=== PATIENT | female | born 1950 ===

== ENCOUNTER 2016-11-30 16:33 | Inpatient (IN) | payer MEDICARE, MEDICAID ==
[2016-11-30] MEDS ORDERED: Albuterol-Ipratrop 3 mg / 0.5 (3 ml) UD IH STA (17:25)
[2016-11-30] MEDS ORDERED: Sodium Chloride 0.9% 1,000 ML IV SCH (17:30)
[2016-11-30 18:01] LABS: ADD MANUAL DIFF? NO
[2016-11-30 18:09] LABS: VENOUS BLOOD GAS BASE EXCESS -0.7 mmol/L (0.0-2.0); VENOUS BLOOD PH 7.39 (7.32-7.43)
[2016-11-30 18:13] LABS: BASO # 0.01 K/mm3 (0.0-2.0); GRAN # 19.06 (1.4-6.5); GRAN % 87.2 % (50.0-68.0); HEMATOCRIT 38.6 % (36.0-48.0); LYMPH # 1.3 (1.2-3.4); LYMPH % 5.9 % (22.0-35.0); MEAN CELL VOLUME 92.1 fL (80.0-105.0); MEAN CORPUSCULAR HGB CONC 34.7 g/dl (31.0-37.0); MEAN PLATELET VOLUME 10.7 fl (7.0-11.0); MONO # 1.5 (0.1-0.6); MONO % 6.9 % (1.0-6.0); PLATELET COUNT 270 10^3/uL (120.0-450.0); RED CELL DISTRIBUTION WIDTH 14.4 % (11.5-14.5); WHITE BLOOD COUNT 21.9 10^3/ul (4.5-11.0)
--- NOTE | 2016-11-30 18:23 | ED PDOC ---
Arrival/HPI - General Chief Complaint: GI Problem Time Seen by Provider: 11/30/16 16:41 Historian: Patient - History of Present Illness Narrative History of Present Illness (Text): 11/30/16 18:25 A 66 year old female, whose past medical history includes COPD and hypothyroidism, presents to the emergency department complaining of a productive cough for the past 2 weeks. Patient notes nasal congestion and chills the past couple of days. Patient reports went to [facility] for pneumonia, given no antibiotics. Patient is tolerating fluids. Denies any fevers, neck pain , neck stiffness or any other complaints at this time. Time/Duration: Other (2 weeks) Symptom Onset: Sudden Symptom Course: Unchanged Activities at Onset: Rest Context: Home Associated Symptoms (Text): nasal congestion, chills, runny nose Past Medical History - Provider Review Nursing Documentation Reviewed: Yes - Infectious Disease Hx of Infectious Diseases: None - Tetanus Immunization Tetanus Immunization: Unknown - Reproductive Menopause: No - Cardiac Hx Cardiac Disorders: Yes - Pulmonary Hx Respiratory Disorders: Yes Hx Chronic Obstructive Pulmonary Disease (COPD): Yes - Neurological Hx Neurological Disorder: No - HEENT Hx HEENT Disorder: No - Renal Hx Renal Disorder: No - Endocrine/Metabolic Hx Endocrine Disorders: Yes Hx Hypothyroidism: Yes - Hematological/Oncological Hx Blood Disorders: No - Integumentary Hx Dermatological Disorder: No Hx Basal Cell Carcinoma: No - Musculoskeletal/Rheumatological Hx Musculoskeletal Disorders: No - Gastrointestinal Hx Gastrointestinal Disorders: No - Genitourinary/Gynecological Hx Genitourinary Disorders: No - Psychiatric Hx Psychophysiologic Disorder: Yes Hx Anxiety: Yes Hx Substance Use: No - Anesthesia Hx Anesthesia: No Family/Social History - Physician Review Nursing Documentation Reviewed: Yes Family/Social History: No Known Family HX Smoking Status: Light Smoker < 10 Cigarettes Daily Hx Alcohol Use: No Hx Substance Use: No Substance used: jaymeajuana Allergies/Home Meds Allergies/Adverse Reactions: Allergies aloe Allergy (Verified 06/27/16 11:25) ANGIOEDEMA Penicillins Allergy (Verified 09/29/15 10:02) Home Medications: Home Meds Medication Instructions Recorded Confirmed Levothyroxine Sodium [Synthroid] 50 mcg PO DAILY 09/01/15 09/01/15 Atorvastatin [Lipitor] 10 mg PO DIN 09/29/15 09/29/15 Venetie-3 Acid Ethyl Esters [Lovaza] 2 gm PO BID 09/29/15 09/29/15 QUEtiapine [SEROquel] 25 mg PO HS 09/29/15 09/29/15 Levothyroxine [Synthroid] 50 mcg PO DAILY 06/27/16 06/27/16 Review of Systems - Physician Review All systems were reviewed & negative as marked: Yes - Review of Systems Constitutional: Other (chills). absent: Fevers ENT: Rhinorrhea, Other (nasal congestion) Respiratory: Cough (productive) Musculoskeletal: absent: Neck Pain (stiffness) Physical Exam Vital Signs Reviewed: Yes Vital Signs Temp Pulse Resp BP Pulse Ox 11/30/16 21:13 6 L 11/30/16 21:12 99.9 F H 11/30/16 20:39 90 17 107/63 11/30/16 18:35 78 17 109/64 97 11/30/16 16:57 99.0 F 101 H 18 113/75 100 Temperature: Afebrile Blood Pressure: Normal Pulse: Tachycardic Respiratory Rate: Normal Appearance: Positive for: Well-Appearing, Non-Toxic, Comfortable Pain Distress: None Mental Status: Positive for: Alert and Oriented X 3 - Systems Exam Head: Present: Atraumatic, Normocephalic Pupils: Present: PERRL Extroacular Muscles: Present: EOMI Conjunctiva: Present: Normal Mouth: Present: Moist Mucous Membranes Neck: Present: Normal Range of Motion Respiratory/Chest: Present: Clear to Auscultation, Good Air Exchange. No: Respiratory Distress, Accessory Muscle Use Cardiovascular: Present: Tachycardic Abdomen: Present: Normal Bowel Sounds. No: Tenderness, Distention, Peritoneal Signs Back: Present: Normal Inspection Upper Extremity: Present: Normal Inspection. No: Cyanosis, Edema Lower Extremity: Present: Normal Inspection. No: Edema Neurological: Present: GCS=15, CN II-XII Intact, Speech Normal Skin: Present: Warm, Dry, Normal Color. No: Rashes Psychiatric: Present: Alert, Oriented x 3, Normal Insight, Normal Concentration Medical Decision Making ED Course and Treatment: 11/30/16 18:20 Impression: A 66 year old female with productive cough. Differential Diagnosis included but are not limited to: chronic obstructive pulmonary disease r/o pneumonia Plan: -- chest xray -- labs -- Duoneb, Solumedrol, IV fluids, Tylenol -- Reassess and disposition Prior Visits: Notes and results from previous visits were reviewed. Patient last reported to the emergency department on 06/27/16 after a fall for evaluation of left anterior knee cap pain. [place] bandage applied by cardiovascular tech. Patient was discharged. Progress Notes: WBC 21. 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 He has liver disease. CXR negative. Will cover with empiric antibiotics at this time. She will be admitted for COPD and Sepsis. Treated with Levaquin. 11/30/16 19:[address] Gera Rea, resident and Dr. Landrum. - Lab Interpretations Lab Results: 11/30/16 17:30 11/30/16 17:30 Lab Results 11/30/16 18:21: Influenza Typ A,B (EIA) Negative for flu a/b 11/30/16 17:30: Sodium 137, Chloride 104, Potassium 4.0, Carbon Dioxide 24, Anion Gap 13, BUN 21, Creatinine 0.8, Est GFR ( Amer) > 60, Est GFR (Non- Af Amer) > 60, Random Glucose 109, Calcium 9.8, Phosphorus 1.8 L, Magnesium 2.1 , Total Bilirubin 0.5, AST 30, ALT 31, Alkaline Phosphatase 85, Total Protein 8.0, Albumin 4.5, Globulin 3.5, Albumin/Globulin Ratio 1.3 11/30/16 17:30: pO2 56 H, VBG pH 7.39, VBG pCO2 40.0, VBG HCO3 24.2, VBG Total CO2 25.4, VBG O2 Sat (Calc) 93.1 H, VBG Base Excess -0.7 L, VBG Potassium 4.2, Sodium 136.0, Chloride 106.0, Glucose 111 H, Lactate 1.2, FiO2 21.0, Venous Blood Potassium 4.2 11/30/16 17:30: WBC 21.9 H, RBC 4.19, Hgb 13.4, Hct 38.6, MCV 92.1, MCH 32.0, MCHC 34.7, RDW 14.4, Plt Count 270, MPV 10.7, Gran % 87.2 H, Lymph % (Auto) 5.9 L, Ritchie % (Auto) 6.9 H, Eos % (Auto) 0.0 L, Baso % (Auto) 0.0, Gran # 19.06 H, Lymph # 1.3, [place] # 1.5 H, Eos # 0.0, Baso # 0.01 I have reviewed the lab results: Yes Interpretation: Abnormal lab values (WBC elevated) - RAD Interpretation Radiology Orders: 11/30/16 17:25 CHEST PORTABLE [RAD] Stat Senior Compliance Officer: ED Physician - Medication Orders Current Medication Orders: Acetaminophen (Tylenol 325mg Tab) 650 mg PO Q6H PRN PRN Reason: Fever >100.4 F Atorvastatin Calcium (Lipitor) 10 mg PO DAILY RADHA Famotidine (Pepcid) 20 mg PO BID [facility] Heparin Sodium (Porcine) (Heparin) 5,000 units SC Q8H RADHA PRN Reason: Protocol Last Admin: 12/01/16 03:18 Dose: 5,000 units Hydroxyzine Pamoate (Vistaril) 25 mg PO TID PRN; Protocol PRN Reason: Agitation Sodium Chloride (Sodium Chloride 0.9%) 1,000 mls @ 100 mls/hr IV .Q10H [facility] Last Admin: 11/30/16 19:40 Dose: 100 mls/hr Levofloxacin/Dextrose (Levaquin 500mg) 500 mg in 100 mls @ 100 mls/hr IVPB DAILY [facility] Aztreonam (Azactam 1 Gm) 100 mls @ 100 mls/hr IVPB Q8 RADHA PRN Reason: Protocol Stop: 12/10/16 06:01 Last Admin: 12/01/16 05:45 Dose: 100 mls/hr Vancomycin HCl (Vancomycin 1gm) 1 gm in 250 mls @ 167 mls/hr IVPB Q12H [facility] PRN Reason: Protocol Stop: 12/09/16 22:16 Last Admin: 11/30/16 22:37 Dose: 167 mls/hr Levothyroxine Sodium (Synthroid) 88 mcg PO DAILY@0630 [facility] Methylprednisolone (Solu-Medrol) 60 mg IVP DAILY [facility] Metronidazole (Flagyl) 500 mg PO Q8 RADHA PRN Reason: Protocol Stop: 12/10/16 06:01 Last Admin: 12/01/16 05:45 Dose: 500 mg [id number] Ethyl Esters (Lovaza) 2 gm PO BID [facility] Ondansetron HCl (Zofran Inj) 8 mg IVP Q8H PRN PRN Reason: Nausea/Vomiting Quetiapine Fumarate (Seroquel) 25 mg PO HS RADHA PRN Reason: Protocol Last Admin: 11/30/16 22:38 Dose: Not Given Non-Admin Reason: Patient Refused Discontinued Medications Acetaminophen (Tylenol 325mg Tab) 975 mg PO ONCE PRN PRN Reason: Fever >100.4 F Last Admin: 11/30/16 18:11 Dose: 975 mg Albuterol/Ipratropium (Duoneb 3 Mg/0.5 Mg (3 Ml) Ud) 3 ml IH STAT STA Stop: 11/30/16 17:26 Last Admin: 11/30/16 18:12 Dose: 3 ml Albuterol/Ipratropium (Duoneb 3 Mg/0.5 Mg (3 Ml) Ud) 3 ml IH Q2H PRN PRN Reason: SOB Stop: 11/30/16 23:31 Alprazolam (Xanax) 0.25 mg PO STAT STA PRN Reason: Protocol Stop: 12/01/16 04:06 Last Admin: 12/01/16 04:11 Dose: 0.25 mg Barium Sulfate (Readi-Cat 2) Confirm Administered Dose 900 ml PO .STK-MED ONE Stop: 12/01/16 06:48 Sodium Chloride (Sodium Chloride 0.9%) 1,000 mls @ 150 mls/hr IV .Q6H40M [facility] Last Admin: 11/30/16 18:12 Dose: 150 mls/hr Levofloxacin/Dextrose (Levaquin 750mg) 750 mg in 150 mls @ 100 mls/hr IVPB STAT STA Stop: 11/30/16 21:00 Last Admin: 11/30/16 19:44 Dose: 100 mls/hr Sodium Chloride (Sodium Chloride 0.9%) 500 mls @ 999 mls/hr IV .Q31M STA Stop: 11/30/16 20:13 Last Admin: 11/30/16 19:55 Dose: 999 mls/hr Levothyroxine Sodium (Synthroid) 50 mcg PO DAILY@0630 [facility] Methylprednisolone (Solu-Medrol) 125 mg IVP STAT STA Stop: 11/30/16 17:26 Last Admin: 11/30/16 18:12 Dose: 125 mg Pneumococcal Polyvalent Vaccine (Pneumovax 23 Vaccine) 0.5 ml IM .ONCE ONE Stop: 11/30/16 22:12 - Scribe Statement The provider has reviewed the documentation as recorded by the Salmaibdeloris Floyd Provider Salmaibe Attestation: All medical record entries made by the Salmaibe were at my direction and personally dictated by me. I have reviewed the chart and agree that the record accurately reflects my personal performance of the history, physical exam, medical decision making, and the department course for this patient. I have also personally directed, reviewed, and agree with the discharge instructions and disposition. Disposition/Present on Arrival - Present on Arrival Any Indicators Present on Arrival: No History of DVT/PE: No History of Uncontrolled Diabetes: No Urinary Catheter: No History of Decub. Ulcer: No History Surgical Site Infection Following: None - Disposition Have Diagnosis and Disposition been Completed?: Yes Diagnosis: Sepsis, COPD (chronic obstructive pulmonary disease) Disposition: HOSPITALIZED Disposition Time: 18:56 Patient Plan: Admission Patient Problems: Current Active Problems Problem Status Onset Sepsis Acute COPD (chronic obstructive pulmonary disease) Chronic Condition: FAIR
[2016-11-30 18:29] LABS: ALB/GLOB RATIO 1.3 (1.1-1.8); ALKALINE PHOSPHATASE 85 U/L (38-133); ALT/SGPT 31 U/L (7-56); AST/SGOT 30 U/L (15-39); BILIRUBIN,TOTAL 0.5 mg/dL (0.2-1.3); BLOOD UREA NITROGEN 21 mg/dL (7-21); CALCIUM 9.8 mg/dL (8.4-10.5); CARBON DIOXIDE 24 mmol/L (21-33); CHLORIDE 104 mmol/L (95-110); GFR AFRICAN-AMERICAN > 60; GLUCOSE,RANDOM 109 mg/dL (70-110); MAGNESIUM 2.1 mg/dL (1.7-2.2); PHOSPHOROUS 1.8 mg/dL (2.5-4.5); SODIUM 137 mmol/L (132-148)
[2016-11-30] MEDS ORDERED: Vancomycin 1 g Inj IVPB SCH (19:15)
[2016-11-30] MEDS ORDERED: Albuterol-Ipratrop 3 mg / 0.5 (3 ml) UD IH PRN (19:29)
[2016-11-30] MEDS ORDERED: Vancomycin 1gm in NS 250ml 1 GM/250 ML BAG IVPB SCH (19:30)
[2016-11-30] MEDS ORDERED: levoFLOXacin 750 mg in D5W 750 MG/150 ML BAG IVPB STA (19:31)
--- NOTE | 2016-11-30 19:31 | CP.PCM.HP ---
Addendum entered and electronically signed by Gera Williamson DO 11/30/16 22:08: Aztreonam changed to levofloxacin 500mg daily Original Note: <Gera Williamson - Last Filed: 11/30/16 21:27> History of Present Illness - History of Present Illness History of Present Illness: This patient is a 66yo F w/ a PMHx of COPD (only taking essential oils, says it is controlled with that), Depression/Anxiety, HLD, Hypothyroidism,who is coming to the hospital with SOB/cough with productive sputum brown now clear. Admits to fevers/chills/night sweats for the past two weeks as well. No weight loss. No N/V. Admits to 4 episodes of watery diarrhea that is green in nature, no blood. States she has been taking care of her son who has been inpatient at [facility] with Budd Chiari syndrome, and she normally sleeps with him at the hospital. No recent antibiotics or travel. States she has joint/muscle aches and pain. Pmhx: as stated above Allergies: PCN; anaphylaxis Surgeries: None Social: Lives at home, disabled, has been admitted for inpatient psych in the past; currently stable, denies EtOH and illicit drugs Meds: Seroquel, Thorazine, Levothyroxine, Preston 3, Lipitor Fam Hx: Diabetes in mom/dad, brothers/sisters In the ED they did a CBC which showed a WBC of 20.1, patient was febrile and tachycardic, negative for flu. c diff ordered. Present on Admission - Present on Admission Any Indicators Present on Admission: No History of DVT/PE: No History of Uncontrolled Diabetes: No Urinary Catheter: No Decubitus Ulcer Present: No Review of Systems - Review of Systems All systems: reviewed and no additional remarkable complaints except Past Patient History - Infectious Disease Hx of Infectious Diseases: None - Tetanus Immunizations Tetanus Immunization: Unknown - Past Social History Smoking Status: Light Smoker < 10 Cigarettes Daily - CARDIAC Hx Cardiac Disorders: Yes - PULMONARY Hx Respiratory Disorders: Yes Hx Chronic Obstructive Pulmonary Disease (COPD): Yes - NEUROLOGICAL Hx Neurological Disorder: No - HEENT Hx HEENT Problems: No - RENAL Hx Chronic Kidney Disease: No - ENDOCRINE/METABOLIC Hx Endocrine Disorders: Yes Hx Hypothyroidism: Yes - HEMATOLOGICAL/ONCOLOGICAL Hx Blood Disorders: No - INTEGUMENTARY Hx Dermatological Problems: No Hx Basil Cell: No - MUSCULOSKELETAL/RHEUMATOLOGICAL Hx Musculoskeletal Disorders: No - GASTROINTESTINAL Hx Gastrointestinal Disorders: No - GENITOURINARY/GYNECOLOGICAL Hx Genitourinary Disorders: No - PSYCHIATRIC Hx Psychophysiologic Disorder: Yes Hx Anxiety: Yes Hx Substance Use: No - SURGICAL HISTORY Hx Surgeries: No - ANESTHESIA Hx Anesthesia: No Meds Allergies/Adverse Reactions: Allergies Allergy/AdvReac Type Severity Reaction Status Date / Time aloe Allergy ANGIOEDEMA Verified 06/27/16 11:25 Penicillins Allergy Verified 09/29/15 10:02 Physical Exam - Constitutional Appears: No Acute Distress Additional comments: diaphoretic, in obvious discomfort - Head Exam Head Exam: ATRAUMATIC - Eye Exam Eye Exam: EOMI, Normal appearance Pupil Exam: PERRL Additional comments: patient is tearing, clear - ENT Exam ENT Exam: Mucous Membranes Moist - Neck Exam Neck exam: Positive for: Full Rom. Negative for: Lymphadenopathy - Respiratory Exam Respiratory Exam: Wheezes, NORMAL BREATHING PATTERN. absent: Clear to Auscultation Bilateral, Rales, Rhonchi - Cardiovascular Exam Cardiovascular Exam: Tachycardia, REGULAR RHYTHM, +S1, +S2 - GI/Abdominal Exam GI & Abdominal Exam: Normal Bowel Sounds, Soft. absent: Organomegaly, Pulsatile Mass, Rebound, Rigid, Tenderness - Rectal Exam Rectal Exam: Deferred - Extremities Exam Extremities exam: Positive for: full ROM, normal inspection. Negative for: calf tenderness - Back Exam Back exam: NORMAL INSPECTION. absent: CVA tenderness (L), CVA tenderness (R) - Neurological Exam Neurological exam: Alert, CN II-XII Intact, Oriented x3, Reflexes Normal - Psychiatric Exam Psychiatric exam: Normal Affect, Normal Mood Results - Vital Signs Recent Vital Signs: Last Vital Signs Temp 99.0 F 11/30/16 16:57 Pulse 78 11/30/16 18:35 Resp 17 11/30/16 18:35 BP 109/64 11/30/16 18:35 Pulse Ox 97 11/30/16 18:35 - Labs Result Diagrams: 11/30/16 17:30 11/30/16 17:30 Labs: Laboratory Results - last 24 hr 11/30/16 11/30/16 11/30/16 17:30 17:30 17:30 WBC 21.9 H RBC 4.19 Hgb 13.4 Hct 38.6 MCV 92.1 MCH 32.0 MCHC 34.7 RDW 14.4 Plt Count 270 MPV 10.7 Gran % 87.2 H Lymph % (Auto) 5.9 L [place] % (Auto) 6.9 H Eos % (Auto) 0.0 L Baso % (Auto) 0.0 Gran # 19.06 H Lymph # 1.3 [place] # 1.5 H Eos # 0.0 Baso # 0.01 pO2 56 H VBG pH 7.39 VBG pCO2 40.0 VBG HCO3 24.2 VBG Total CO2 25.4 VBG O2 Sat (Calc) 93.1 H VBG Base Excess -0.7 L VBG Potassium 4.2 Sodium 136.0 137 Chloride 106.0 104 Glucose 111 H Lactate 1.2 FiO2 21.0 Potassium 4.0 Carbon Dioxide 24 Anion Gap 13 BUN 21 Creatinine 0.8 Est GFR ( Amer) > 60 Est GFR (Non-Af Amer) > 60 Random Glucose 109 Calcium 9.8 Phosphorus 1.8 L Magnesium 2.1 Total Bilirubin 0.5 AST 30 ALT 31 Alkaline Phosphatase 85 Total Protein 8.0 Albumin 4.5 Globulin 3.5 Albumin/Globulin Ratio 1.3 Venous Blood Potassium 4.2 Influenza Typ A,B (EIA) 11/30/16 18:21 WBC RBC Hgb Hct MCV MCH MCHC RDW Plt Count MPV Gran % Lymph % (Auto) [place] % (Auto) Eos % (Auto) Baso % (Auto) Gran # Lymph # [place] # Eos # Baso # pO2 VBG pH VBG pCO2 VBG HCO3 VBG Total CO2 VBG O2 Sat (Calc) VBG Base Excess VBG Potassium Sodium Chloride Glucose Lactate FiO2 Potassium Carbon Dioxide Anion Gap BUN Creatinine Est GFR ( Amer) Est GFR (Non-Af Amer) Random Glucose Calcium Phosphorus Magnesium Total Bilirubin AST ALT Alkaline Phosphatase Total Protein Albumin Globulin Albumin/Globulin Ratio Venous Blood Potassium Influenza Typ A,B (EIA) Negative for flu a/b Assessment & Plan - Assessment and Plan (Free Text) Assessment: This is a 66yo F admitted for Sepsis 2/2 to suspected PNA Sepsis 2/2 to PNA -Vanco and Aztreonam for HAP; patient is allergic to PCN -ID Consult; [place]; appreciate recs -WBC 20.1; trend, tachycardic, febrile -NS bolus in the ED; c/w 100ml/hr NS -Lactate WNL -f/u c.diff antigen and sputum culture -f/u blood cultures -f/u legionella COPD -duonebs Q2H PRN -patient not on any outpatient meds; essential oils as per patient; has not had acute exacerbation in 8 years Hypothyroidism -c/w home meds -f/u TSH/Free T4 HLD -c/w home meds Depression/Anxiety -c/w psych meds; thorazine and seroquel -thought process is congruent and goal oriented; no signs of psychosis or delirium Proph -Pepcid -Hep SC -Heart healthy diet; vegetarian Case Discussed and seen with Dr. Lucita Williamson PGY1 Night Float Decision To Admit - Pt Status Changed To: Hospital Disposition Of: Inpatient Admission - Admit Certification Admit to Inpatient:: After my assessment, the patient will require hospitalization for at least two midnights. This is because of the severity of symptoms shown, intensity of services needed, and/or the medical risk in this patient being treated as an outpatient. - . Bed Request Type: Remote Telemetry Admitting Physician: Jose Cruz Landrum <Jose Cruz Landrum - Last Filed: 12/11/16 20:51> Results - Vital Signs Recent Vital Signs: Last Vital Signs Temp 97.9 F 12/02/16 09:30 Pulse 68 12/02/16 09:30 Resp 18 12/02/16 09:30 BP 127/69 12/02/16 09:30 Pulse Ox 96 12/02/16 09:30 - Labs Result Diagrams: 12/02/16 07:54 12/02/16 07:54 Attending/Attestation - Attestation I have personally seen and examined this patient.: Yes I have fully participated in the care of the patient.: Yes I have reviewed all pertinent clinical information: Yes
[2016-11-30] MEDS: Sodium Chloride 0.9% 1,000 ML IV SCH ×2 (19:38→19:40)
[2016-11-30] MEDS ORDERED: Sodium Chloride 0.9% 500 ML IV STA (19:43)
[2016-11-30 19:48] LABS: URINE BILIRUBIN NEGATIVE (NEGATIVE); URINE BLOOD TRACE-INTACT (NEGATIVE); URINE GLUCOSE (UA) NEGATIVE (NEGATIVE); URINE KETONE TRACE mg/dL (NEGATIVE); URINE LEUKOCYTE ESTERASE NEGATIVE Leu/uL (NEGATIVE); URINE PROTEIN NEGATIVE mg/dL (<30 mg/dL); URINE UROBILINOGEN 0.2 E.U./dL (<1 E.U./dL)
[2016-11-30 19:58] LABS: URINE APPEARANCE CLEAR (CLEAR); URINE COLOR YELLOW (YELLOW)
[2016-11-30 20:31] LABS: URINE EPITHELIAL CELLS 0 - 2 /hpf (0-5); URINE WBC 0 - 2 /hpf (0-6)
[2016-11-30 21:46] LABS: FREE T4 0.56 ng/dL (0.78-2.19)
[2016-11-30 22:00] LABS: THYROID STIMULATING HORMONE 4.96 mIU/mL (0.46-4.68)
[2016-11-30] MEDS ORDERED: Aztreonam 1 Gm in NS 100mL 100 ML IVPB SCH (22:00)
[2016-11-30] MEDS ORDERED: Pneumococcal 23-Valent Vaccine IM ONE (22:11)
[2016-11-30 22:29] VITALS: RESP 18; BMI 23.6
[2016-11-30] MEDS: Vancomycin 1gm in NS 250ml 1 GM/250 ML BAG IVPB SCH (22:37)
[2016-12-01] MEDS: Aztreonam 1 Gm in NS 100mL 100 ML IVPB SCH ×3 (05:45→21:53)
[2016-12-01] MEDS ORDERED: Levothyroxine 50 MCG TAB PO SCH (06:30)
[2016-12-01] MEDS ORDERED: Barium Sulfate Susp 2.1% w/v, 2.0% w/w 450 mL Bottle PO ONE (06:47)
[2016-12-01 07:13] LABS: ADD MANUAL DIFF? NO
[2016-12-01 07:27] LABS: BASO # 0.01 K/mm3 (0.0-2.0); BASO % 0.1 % (0.0-3.0); GRAN # 15.89 (1.4-6.5); GRAN % 90.6 % (50.0-68.0); HEMATOCRIT 33.2 % (36.0-48.0); LYMPH % 5.5 % (22.0-35.0); MEAN CORPUSCULAR HEMOGLOBIN 31.3 pg (25.0-35.0); MEAN PLATELET VOLUME 10.7 fl (7.0-11.0); MONO # 0.7 (0.1-0.6); MONO % 3.8 % (1.0-6.0); PLATELET COUNT 229 10^3/uL (120.0-450.0); RED CELL DISTRIBUTION WIDTH 14.6 % (11.5-14.5); WHITE BLOOD COUNT 17.5 10^3/ul (4.5-11.0)
[2016-12-01 09:02] LABS: ALB/GLOB RATIO 1.3 (1.1-1.8); ALKALINE PHOSPHATASE 75 U/L (38-133); ALT/SGPT 40 U/L (7-56); AST/SGOT 20 U/L (15-39); BILIRUBIN,TOTAL 0.3 mg/dL (0.2-1.3); BLOOD UREA NITROGEN 13 mg/dL (7-21); CARBON DIOXIDE 21 mmol/L (21-33); CHLORIDE 110 mmol/L (95-110); GFR AFRICAN-AMERICAN > 60; GLUCOSE,RANDOM 97 mg/dL (70-110); POTASSIUM 4.1 mmol/L (3.6-5.0); SODIUM 139 mmol/L (132-148); TOTAL PROTEIN 6.7 g/dL (5.8-8.3)
--- NOTE | 2016-12-01 09:40 | RAD ---
HISTORY: Sepsis Patient COMPARISON: No prior. FINDINGS: LUNGS: No active pulmonary disease. PLEURA: No significant pleural effusion identified, no pneumothorax apparent. CARDIOVASCULAR: Normal. OSSEOUS STRUCTURES: No significant abnormalities. VISUALIZED UPPER ABDOMEN: Normal. OTHER FINDINGS: None. IMPRESSION: No active disease.
[2016-12-01] MEDS ORDERED: SODIUM CHLORIDE 0.9% IV SCH (10:00)
[2016-12-01] MEDS ORDERED: METHYLPREDNISOLONE IV SCH (10:00)
[2016-12-01] MEDS: Omega-3-Acid Ethyl Esters 1 GM Cap PO SCH ×2 (10:47→18:44)
[2016-12-01] MEDS: levoFLOXacin 500 mg in D5W 500 MG/100 ML BAG IVPB SCH (10:47)
[2016-12-01] MEDS: Levothyroxine 88 MCG TAB PO SCH (10:48)
[2016-12-01] MEDS: Vancomycin 1gm in NS 250ml 1 GM/250 ML BAG IVPB SCH ×2 (10:49→21:56)
--- NOTE | 2016-12-01 12:42 | CT ---
PROCEDURE: CT Chest, Abdomen and Pelvis without intravenous contrast HISTORY: wbc of 21k COMPARISON: None. TECHNIQUE: Radiation dose: Total exam DLP = mGy-cm. This CT exam was performed using one or more of the following dose reduction techniques: Automated exposure control, adjustment of the mA and/or kV according to patient size, and/or use of iterative reconstruction technique. FINDINGS: CT CHEST WITHOUT CONTRAST: LUNGS: There is a moderate-size right lower lobe region of consolidation. MEDIASTINUM: Unremarkable. Normal caliber aorta and pulmonary arterial trunk. Normal size heart. LYMPH NODES: Unremarkable. PLEURA: Unremarkable. No pneumothorax. No pleural fluid. BONES: Unremarkable. OTHER FINDINGS: None. CT ABDOMEN AND PELVIS: LIVER: Unremarkable. No gross lesion or ductal dilatation. GALLBLADDER AND BILE DUCTS: Gallstone. PANCREAS: Unremarkable. No gross lesion or ductal dilatation. SPLEEN: Unremarkable. ADRENALS: 1.5 centimeter left adrenal nodule. KIDNEYS AND URETERS: Bilateral nonobstructive nephrolithiasis is noted measuring roughly 5 millimeters in the right mid kidney and 7 millimeters in the left mid kidney. VASCULATURE: Unremarkable. No aortic aneurysm. BOWEL: There is a colonic diverticulosis.. No obstruction. No gross mural thickening. APPENDIX: Normal appendix. PERITONEUM: Unremarkable. No free fluid. No free air. LYMPH NODES: Unremarkable. No enlarged lymph nodes. BLADDER: Unremarkable. REPRODUCTIVE: Unremarkable. BONES: No acute fracture. OTHER FINDINGS: None. IMPRESSION: Bilateral nonobstructive nephrolithiasis. Colonic diverticulosis. Left adrenal lesion. Right lower lobe region of consolidation for which follow-up is recommended; alveolar cell carcinoma is not excluded.
[2016-12-01] MEDS ORDERED: MethylPREDNISolone 40 mg Vial IVP SCH (13:26)
--- NOTE | 2016-12-01 13:30 | CP.PCM.PN ---
<Elian Lawson - Last Filed: 12/01/16 13:31> Subjective - Date & Time of Evaluation Date of Evaluation: 12/01/16 Time of Evaluation: 13:25 - Subjective Subjective: Medicine progress note. Attending: Dr. Rico Pt seen and examined at bedside. No acute distress. No events overnight. Denies fevers, chills, vomiting. Feels better. Has had 2 more loose stools this morning. Objective - Vital Signs/Intake and Output Vital Signs (last 24 hours): Temp Pulse Resp BP Pulse Ox 98.2 F 76 18 111/62 97 11/30/16 22:12 11/30/16 22:12 11/30/16 22:12 11/30/16 22:12 11/30/16 18:35 Intake and Output: 12/01/16 12/01/16 06:59 18:59 Intake Total 1220 Balance 1220 - Medications Medications: Current Medications Acetaminophen (Tylenol 325mg Tab) 650 mg PO Q6H PRN PRN Reason: Fever >100.4 F Atorvastatin Calcium (Lipitor) 10 mg PO DAILY [facility] Last Admin: 12/01/16 10:47 Dose: 10 mg Famotidine (Pepcid) 20 mg PO BID [facility] Last Admin: 12/01/16 10:47 Dose: 20 mg Heparin Sodium (Porcine) (Heparin) 5,000 units SC Q8H [facility] PRN Reason: Protocol Last Admin: 12/01/16 10:46 Dose: 5,000 units Hydroxyzine Pamoate (Vistaril) 25 mg PO TID PRN; Protocol PRN Reason: Agitation Sodium Chloride (Sodium Chloride 0.9%) 1,000 mls @ 100 mls/hr IV .Q10H [facility] Last Admin: 11/30/16 19:40 Dose: 100 mls/hr Levofloxacin/Dextrose (Levaquin 500mg) 500 mg in 100 mls @ 100 mls/hr IVPB DAILY [facility] Last Admin: 12/01/16 10:47 Dose: 100 mls/hr Aztreonam (Azactam 1 Gm) 100 mls @ 100 mls/hr IVPB Q8 [facility] PRN Reason: Protocol Stop: 12/10/16 06:01 Last Admin: 12/01/16 05:45 Dose: 100 mls/hr Vancomycin HCl (Vancomycin 1gm) 1 gm in 250 mls @ 167 mls/hr IVPB Q12H [facility] PRN Reason: Protocol Stop: 12/09/16 22:16 Last Admin: 12/01/16 10:49 Dose: 167 mls/hr Levothyroxine Sodium (Synthroid) 88 mcg PO DAILY@0630 [facility] Last Admin: 12/01/16 10:48 Dose: 88 mcg Methylprednisolone (Solu-Medrol) 40 mg IVP DAILY [facility] Metronidazole (Flagyl) 500 mg PO Q8 [facility] PRN Reason: Protocol Stop: 12/10/16 06:01 Last Admin: 12/01/16 05:45 Dose: 500 mg [id number] Ethyl Esters (Lovaza) 2 gm PO BID [facility] Last Admin: 12/01/16 10:47 Dose: 2 gm Ondansetron HCl (Zofran Inj) 8 mg IVP Q8H PRN PRN Reason: Nausea/Vomiting Quetiapine Fumarate (Seroquel) 25 mg PO HS [facility] PRN Reason: Protocol Last Admin: 11/30/16 22:38 Dose: Not Given - Labs Labs: 12/01/16 06:30 12/01/16 08:30 - Constitutional Appears: Non-toxic, No Acute Distress - Head Exam Head Exam: ATRAUMATIC, NORMAL INSPECTION, NORMOCEPHALIC - Eye Exam Eye Exam: EOMI - ENT Exam ENT Exam: Mucous Membranes Moist - Neck Exam Neck Exam: Full ROM, Normal Inspection - Respiratory Exam Respiratory Exam: Rhonchi. absent: Respiratory Distress - Cardiovascular Exam Cardiovascular Exam: REGULAR RHYTHM, +S1, +S2 - GI/Abdominal Exam GI & Abdominal Exam: Soft, Normal Bowel Sounds. absent: Tenderness - Extremities Exam Extremities Exam: Full ROM, Normal Inspection - Back Exam Back Exam: NORMAL INSPECTION - Neurological Exam Neurological Exam: Alert, Awake, CN II-XII Intact, Oriented x3 - Psychiatric Exam Psychiatric exam: Flat Affect - Skin Skin Exam: Dry, Intact, Normal Color, Warm Assessment and Plan - Assessment and Plan (Free Text) Assessment: This is a 66 year old female with past medical hx of COPD, depression, HLD, hypothyroidism, presenting with sob and cough, admitted for Sepsis 2/2 to suspected PNA Sepsis 2/2 to PNA -Vanco and Aztreonam for HAP; patient is allergic to PCN -ID Consult; Co[place]; appreciate recs -WBC 20.1; trend, tachycardic, afebrile initially -NS bolus in the ED; c/w 100ml/hr NS -Lactate WNL -f/u c.diff antigen and sputum culture -f/u blood cultures -f/u legionella -continue flagyl 500 po q8 -continue azactam 1 g q8 -continue levaquin 500 mg iv daily -continue vanco 1 g q 12 COPD -duonebs Q2H PRN -patient not on any outpatient meds; essential oils as per patient; has not had acute exacerbation in 8 years -will continue solumedrol 40 mg IV daily -will consult Dr. Rubio. pulm. recs appreciated. Hypothyroidism -continue synthroid 88 mcg daily HLD -continue home lipitor -continue lovaza Depression/Anxiety -continue vistaril and seroquel 25 mg HS -thought process is congruent and goal oriented; no signs of psychosis or delirium Proph -Pepcid -Hep SC -Heart healthy diet; vegetarian dw Dr. Rico <Luke Rico - Last Filed: 12/01/16 21:03> Objective - Vital Signs/Intake and Output Vital Signs (last 24 hours): Temp Pulse Resp BP Pulse Ox 98 F 70 18 123/70 96 12/01/16 19:54 12/01/16 19:54 12/01/16 19:54 12/01/16 19:54 12/01/16 19:54 - Medications Medications: Current Medications Acetaminophen (Tylenol 325mg Tab) 650 mg PO Q6H PRN PRN Reason: Fever >100.4 F Atorvastatin Calcium (Lipitor) 10 mg PO DAILY [facility] Last Admin: 12/01/16 10:47 Dose: 10 mg Famotidine (Pepcid) 20 mg PO BID [facility] Last Admin: 12/01/16 18:44 Dose: 20 mg Heparin Sodium (Porcine) (Heparin) 5,000 units SC Q8H [facility] PRN Reason: Protocol Last Admin: 12/01/16 10:46 Dose: 5,000 units Hydroxyzine Pamoate (Vistaril) 25 mg PO TID PRN; Protocol PRN Reason: Agitation Sodium Chloride (Sodium Chloride 0.9%) 1,000 mls @ 100 mls/hr IV .Q10H [facility] Last Admin: 12/01/16 18:45 Dose: 100 mls/hr Levofloxacin/Dextrose (Levaquin 500mg) 500 mg in 100 mls @ 100 mls/hr IVPB DAILY [facility] Last Admin: 12/01/16 10:47 Dose: 100 mls/hr Aztreonam (Azactam 1 Gm) 100 mls @ 100 mls/hr IVPB Q8 [facility] PRN Reason: Protocol Stop: 12/10/16 06:01 Last Admin: 12/01/16 15:08 Dose: 100 mls/hr Vancomycin HCl (Vancomycin 1gm) 1 gm in 250 mls @ 167 mls/hr IVPB Q12H [facility] PRN Reason: Protocol Stop: 12/09/16 22:16 Last Admin: 12/01/16 10:49 Dose: 167 mls/hr Levothyroxine Sodium (Synthroid) 88 mcg PO DAILY@0630 [facility] Last Admin: 12/01/16 10:48 Dose: 88 mcg Loperamide HCl (Imodium) 2 mg PO QID PRN PRN Reason: Diarrhea Methylprednisolone (Solu-Medrol) 40 mg IVP DAILY [facility] [id number] Ethyl Esters (Lovaza) 2 gm PO BID [facility] Last Admin: 12/01/16 18:44 Dose: 2 gm Ondansetron HCl (Zofran Inj) 8 mg IVP Q8H PRN PRN Reason: Nausea/Vomiting Quetiapine Fumarate (Seroquel) 25 mg PO [facility] PRN Reason: Protocol Last Admin: 11/30/16 22:38 Dose: Not Given - Labs Labs: 12/01/16 06:30 12/01/16 08:30 Attending/Attestation - Attestation I have personally seen and examined this patient.: Yes I have fully participated in the care of the patient.: Yes I have reviewed all pertinent clinical information, including history, physical exam and plan: Yes Notes (Text): 12/01/16 21:00 66 year old female with past medical history of COPD, depression and hypothyroidism who presented with cough and shortness of breath secondary to COPD exacerbation and pneumonia. CT chest showed right lower lobe consolidation ; recommended follow up see report. She is on iv steroids, duonebs and iv antibiotics. ID and pulmonary evaluation were requested. Stool for cdiff was ordered due to leukocytosis and diarrhea. Luke Rico MD Hospitalist.
--- NOTE | 2016-12-01 16:28 | CP.PCM.CON ---
History of Present Illness - History of Present Illness History of Present Illness: 66 year old female with PMH of COPD, depression and anxiety, dyslipidemia, hypothyroidism came in to [facility] because of worsening shortness of breath and cough productive of phlegm for the past 4-5 days. As per patient, she started having cough a week ago while she was taking care of her son at [facility] for her son's Budd Chiari syndrome. She denies fever or chills, no headache or dizziness, no chest pain, no abdominal pain, no dysuria, no hematuria. She is having some loose bowel movement as well. CT chest, abdomen and pelvis has been done which shows right lower lobe consolidation and Infectious Diseases consult is requested to further evaluate and manage. Review of Systems - Review of Systems All systems: reviewed and no additional remarkable complaints except (as per HPI ) Past Patient History - Infectious Disease Hx of Infectious Diseases: None - Tetanus Immunizations Tetanus Immunization: Unknown - Past Social History Smoking Status: Light Smoker < 10 Cigarettes Daily - CARDIAC Hx Hypercholesterolemia: Yes - PULMONARY Hx Respiratory Disorders: Yes Hx Chronic Obstructive Pulmonary Disease (COPD): Yes - NEUROLOGICAL Hx Neurological Disorder: No - HEENT Hx HEENT Problems: No - RENAL Hx Chronic Kidney Disease: No - ENDOCRINE/METABOLIC Hx Endocrine Disorders: Yes Hx Hypothyroidism: Yes - HEMATOLOGICAL/ONCOLOGICAL Hx Blood Disorders: No - INTEGUMENTARY Hx Dermatological Problems: No Hx Basil Cell: No - MUSCULOSKELETAL/RHEUMATOLOGICAL Hx Musculoskeletal Disorders: No Hx Falls: No - GASTROINTESTINAL Hx Gastrointestinal Disorders: No - GENITOURINARY/GYNECOLOGICAL Hx Genitourinary Disorders: No - PSYCHIATRIC Hx Psychophysiologic Disorder: Yes Hx Anxiety: Yes Other/Comment: Smoker - SURGICAL HISTORY Hx Surgeries: No - ANESTHESIA Hx Anesthesia: No Meds Allergies/Adverse Reactions: Allergies Allergy/AdvReac Type Severity Reaction Status Date / Time aloe Allergy ANGIOEDEMA Verified 06/27/16 11:25 Penicillins Allergy Verified 09/29/15 10:02 - Medications Medications: Current Medications Acetaminophen (Tylenol 325mg Tab) 650 mg PO Q6H PRN PRN Reason: Fever >100.4 F Albuterol/Ipratropium (Duoneb 3 Mg/0.5 Mg (3 Ml) Ud) 3 ml IH Q2H PRN PRN Reason: SOB Stop: 11/30/16 23:31 Atorvastatin Calcium (Lipitor) 10 mg PO DAILY [facility] Famotidine (Pepcid) 20 mg PO BID [facility] Heparin Sodium (Porcine) (Heparin) 5,000 units SC Q8H [facility] PRN Reason: Protocol Last Admin: 11/30/16 19:44 Dose: 5,000 units Hydroxyzine Pamoate (Vistaril) 25 mg PO TID PRN; Protocol PRN Reason: Agitation Sodium Chloride (Sodium Chloride 0.9%) 1,000 mls @ 100 mls/hr IV .Q10H [facility] Last Admin: 11/30/16 19:40 Dose: 100 mls/hr Levofloxacin/Dextrose (Levaquin 500mg) 500 mg in 100 mls @ 100 mls/hr IVPB DAILY [facility] Aztreonam (Azactam 1 Gm) 100 mls @ 100 mls/hr IVPB Q8 [facility] PRN Reason: Protocol Stop: 12/10/16 06:01 Vancomycin HCl (Vancomycin 1gm) 1 gm in 250 mls @ 167 mls/hr IVPB Q12H [facility] PRN Reason: Protocol Stop: 12/09/16 22:16 Last Admin: 11/30/16 22:37 Dose: 167 mls/hr Ibuprofen (Motrin Tab) 600 mg PO Q6H PRN PRN Reason: Pain, Mild (1-3) Levothyroxine Sodium (Synthroid) 80 mcg PO DAILY@0630 [facility] Methylprednisolone (Solu-Medrol) 60 mg IVP DAILY [facility] Metronidazole (Flagyl) 500 mg PO Q8 [facility] PRN Reason: Protocol Stop: 12/10/16 06:01 [id number] Ethyl Esters (Lovaza) 2 gm PO BID [facility] Ondansetron HCl (Zofran Inj) 8 mg IVP Q8H PRN PRN Reason: Nausea/Vomiting Quetiapine Fumarate (Seroquel) 25 mg PO HS [facility] PRN Reason: Protocol Last Admin: 11/30/16 22:38 Dose: Not Given Physical Exam - Constitutional Appears: Non-toxic, No Acute Distress - Head Exam Head Exam: NORMAL INSPECTION - ENT Exam ENT Exam: Mucous Membranes Moist - Neck Exam Neck exam: Negative for: Lymphadenopathy, Meningismus - Respiratory Exam Respiratory Exam: Decreased Breath Sounds - Cardiovascular Exam Cardiovascular Exam: +S1, +S2 - GI/Abdominal Exam GI & Abdominal Exam: Soft. absent: Tenderness Results - Vital Signs Recent Vital Signs: Last Vital Signs Temp 98.2 F 06/08/17 22:12 Pulse 76 11/30/16 22:12 Resp 18 11/30/16 22:12 BP 111/62 11/30/16 22:12 Pulse Ox 97 11/30/16 18:35 - Labs Result Diagrams: 12/01/16 06:30 12/01/16 08:30 Labs: Laboratory Results - last 24 hr 11/30/16 11/30/16 19:30 21:00 Free T4 0.56 L TSH 3rd Generation 4.96 H Urine Color Yellow Urine Appearance Clear Urine pH 6.0 Ur Specific [place] 1.025 Urine Protein Negative Urine Glucose (UA) Negative Urine Ketones Trace H Urine Blood Trace-intact H Urine Nitrate Negative Urine Bilirubin Negative Urine Urobilinogen 0.2 Ur Leukocyte Esterase Negative Urine RBC 1 - 3 Urine WBC 0 - 2 Ur Epithelial Cells 0 - 2 Assessment & Plan - Assessment and Plan (Free Text) Plan: Assessment Consider sepsis due to right lower lobe pneumonia COPD depression and anxiety dyslipidemia hypothyroidism Plan Started patient on Vancomycin, Azactam, Levaquin pending blood, sputum cx, PCT, urine Legionella Ag; reviewed CT chest, abdomen and pelvis which shows the right lower lobe consolidation and non-obstructive bilateral nephrolithiasis Will follow clinically
[2016-12-01] MEDS: Sodium Chloride 0.9% 1,000 ML IV SCH (18:45)
[2016-12-01 19:55] VITALS: O2SAT 96
--- NOTE | 2016-12-01 21:40 | CON ---
DATE: 12/01/2016 REFERRING PHYSICIAN: Dr. Rico. REASON FOR CONSULT: Chronic obstructive lung disease. HISTORY OF PRESENT ILLNESS: This is a 66-year-old female, who is a smoker, carrying diagnoses of chr onic obstructive lung disease, anxiety disorder, depression, hypothyroidism, came into Emergency Room with cough, shortness of breath for a few days, received IV and inhaled bronchodilators. She had ab dominal CAT scan done in the ER, which shows right lower lobe infiltrate. She has been having diarrh ea, loose stools, no hemoptysis. No hematemesis, no melena, hematochezia. PAST MEDICAL HISTORY: Chronic obstructive lung disease, depression, anxiety disorder, hypothyroid. ALLERGIES: PENICILLIN AND ALOE. SOCIAL HISTORY: She is a smoker. Denies any alcohol use. FAMILY HISTORY: No significant cardiopulmonary disease reported. MEDICATIONS: She is on Azactam 1 g IV q. 8 hours, heparin 5000 units subQ q. 8 hours, Levaquin 500 m g IV daily, Lipitor 10 mg daily, Lovaza 2 mg twice a day, Pepcid 20 mg twice a day, Seroquel 25 mg at bedtime, IV fluid normal saline 100 mL per hour, Solu-Medrol 40 mg IV daily, Synthroid 88 mcg daily, Tylenol p.r.n., vancomycin 1 g IV q. 12 hours, Vistaril 25 mg 3 times a day p.r.n., Zofran on a p.r. n. basis. In the ER, she received Flagyl and Levaquin. REVIEW OF SYSTEMS: No headache, no rhinitis. Has cough, shortness of breath. No chest pain, no [place] sea, has diarrhea. No leg pain or leg swelling. PHYSICAL EXAMINATION: GENERAL: Sitting up, having lunch. No acute distress. VITAL SIGNS: Temp is 98, heart rate 76, respiratory rate is 18, blood pressure 111/62, pulse ox 97% on room air. HEENT: Moist mucous membrane. No ulcer or thrush noted. NECK: Supple. No JVD. LUNGS: Has prolonged expiratory phase with some wheezing. HEART: S1, S2. ABDOMEN: Soft, nontender, nondistended. EXTREMITIES: There is no edema. NEUROLOGIC: Awake, alert, follows simple commands. LABORATORY DATA: Shows hemoglobin 11.3, hematocrit 33.2, WBC 17.5, platelet is 229. Blood gases don e yesterday show pH 7.39 , pCO2 40, O2 of 56. Sodium 139, potassium 4.1, chloride 110, bicarbon ate 21, BUN 13, creatinine 0.7, glucose is 97, calcium 9.0, AST 20, ALT 40, alkaline phosphatase is 7 5, albumin is 3.7. TSH 4.96. MICROBIOLOGY: Blood cultures: No growth. Sputum culture: No growth. Stool for C. diff is negative. CT scan of the chest, abdomen and pelvis done, which shows bilateral nonobstructive nephrolithiasis , diverticulosis, left adrenal lesion and right lower lobe consolidation. IMPRESSION AND PLAN: Chronic obstructive lung disease, hypothyroid, hyperlipidemia, diarrhea, adrena l lesion. Agree with the present management. Continue antibiotics, inhaled bronchodilators, Solu-Me drol. May give Imodium on p.r.n. basis. Asked patient to stop smoking. Will need followup CAT scan of the chest to assure the stability and improvement of infiltrate. Thank you and will follow with loren carlson. Hay Rubio MD cc: [phone] TT: 12/01/2016 21:40:25 Confirmation # [id number] Dictation # [id number]
[2016-12-02] MEDS: Aztreonam 1 Gm in NS 100mL 100 ML IVPB SCH (05:51)
[2016-12-02] MEDS: Levothyroxine 88 MCG TAB PO SCH (05:54)
[2016-12-02 07:58] LABS: ADD MANUAL DIFF? NO
[2016-12-02 08:01] LABS: GRAN % 75.4 % (50.0-68.0); HEMATOCRIT 31.1 % (36.0-48.0); LYMPH # 2.2 (1.2-3.4); LYMPH % 18.3 % (22.0-35.0); MEAN CELL VOLUME 92.8 fL (80.0-105.0); MEAN CORPUSCULAR HEMOGLOBIN 30.7 pg (25.0-35.0); MEAN CORPUSCULAR HGB CONC 33.1 g/dl (31.0-37.0); MEAN PLATELET VOLUME 11.3 fl (7.0-11.0); MONO # 0.8 (0.1-0.6); MONO % 6.3 % (1.0-6.0); PLATELET COUNT 229 10^3/uL (120.0-450.0); WHITE BLOOD COUNT 11.9 10^3/ul (4.5-11.0)
[2016-12-02 08:11] LABS: MAGNESIUM 2.3 mg/dL (1.7-2.2); PHOSPHOROUS 2.7 mg/dL (2.5-4.5)
[2016-12-02 09:17] LABS: ALKALINE PHOSPHATASE 70 U/L (38-133); ALT/SGPT 63 U/L (7-56); AST/SGOT 37 U/L (15-39); BILIRUBIN,TOTAL 0.3 mg/dL (0.2-1.3); BLOOD UREA NITROGEN 19 mg/dL (7-21); CARBON DIOXIDE 20 mmol/L (21-33); CHLORIDE 116 mmol/L (98-107); GFR AFRICAN-AMERICAN > 60; GLUCOSE,RANDOM 92 mg/dL (70-110); POTASSIUM 3.9 mmol/L (3.6-5.0); SODIUM 141 mmol/L (132-148); TOTAL PROTEIN 5.8 g/dL (5.8-8.3)
[2016-12-02] MEDS: Omega-3-Acid Ethyl Esters 1 GM Cap PO SCH (10:15)
[2016-12-02] MEDS: Vancomycin 1gm in NS 250ml 1 GM/250 ML BAG IVPB SCH (10:17)
--- NOTE | 2016-12-02 10:18 | CARD ---
APPROVED REPORT EKG Measurement Heart [id number] <Conclusion> Normal sinus rhythm Normal ECG Normal QT
[2016-12-02] MEDS: levoFLOXacin 500 mg in D5W 500 MG/100 ML BAG IVPB SCH (12:03)
--- NOTE | 2016-12-02 14:28 | PN ---
DATE: 12/02/2016 The patient seen earlier this morning in 565, bed 2. No fevers and chills, no nausea. PHYSICAL EXAMINATION: VITAL SIGNS: Temperature is 98, blood pressure is 123/70, respiratory rate of 18, heart rate of 76. HEENT: Unremarkable. NECK: Supple. LUNGS: Have decreased breath sounds. HEART: Normal S1, S2. ABDOMEN: Soft, nontender. LABORATORY EXAMINATION: Reveals a white count of 11,900, hemoglobin of 10 and platelets of 229. Valeri mistries are noted and the patient's BUN of 19, creatinine of 0.8. Microbiology reveals the urine is a gram-positive cocci in the urine. The blood cultures have no growth. The stool for C. diff is ne gative antigen, negative toxin. Review of the urinalysis reveals an unremarkable urinalysis 0-2 WBCs . Review of the orders reveals the patient to be on aztreonam, Levaquin and vancomycin. Review of t he CAT scan of the chest and abdomen reveals the patient to have right lower lobe consolidation. Dr. Remy Amezcua that renal cell carcinoma is not excluded, nonobstructing nephrolithiasis. ASSESSMENT AND PLAN: A 66-year-old female with chronic obstructive lung disease, depression, anxiety , dyslipidemia, hypothyroidism, who was seen earlier this morning, found to have sepsis with a right lower lobe pneumonia and chronic obstructive pulmonary disease with anxiety, depression, dyslipidemia . The patient's EKG shows QTC of 416 and patient has not been in the hospital the last 6 months, is a community-acquired pneumonia, may use p.o. Levaquin 500 mg p.o. once daily x 5 days. Gera Mccall MD cc: [phone] TT: 12/02/2016 14:27:14 Confirmation # [id number] Dictation # [id number]
[2016-12-02] MEDS ORDERED: MethylPREDNISolone 40 mg Vial IVP SCH (16:39)
[2016-12-02 16:51] VITALS: BP 127/69; PULSE 68; TEMP 97.9
--- NOTE | 2016-12-02 17:42 | CP.PCM.DIS ---
<Orlando Day - Last Filed: 12/02/16 17:43> Provider - Provider Date of Admission: 11/30/16 19:08 Attending physician: Luke Rico MD Primary care physician: NO PRIMARY CARE PROVIDER Consults: ID: Teri Pulm: Joanne Time Spent in preparation of Discharge (in minutes): 35 Diagnosis - Discharge Diagnosis (1) Sepsis Status: Acute Priority: High Comment: likely 2/2 Pneumonia (2) Pneumonia Status: Acute Priority: High Comment: treating as HCAP due to extensive time spent at (including sleeping at ) [facility] (Son with Budd-Chairi at that hospital). (3) COPD (chronic obstructive pulmonary disease) Status: Chronic Priority: Low (4) Hypothyroidism Status: Chronic Priority: Low (5) Pulmonary nodule Status: Chronic Priority: Medium Onset Date: 09/04/15 Comment: Pt reports similar finding by Pre Owned Sales Consultant at [facility], identified > 1 yr ago, has yearly f/u Hospital Course - Lab Results Lab Results: Micro Results 11/30/16 19:30 Urine Urine Culture - Final Gram Positive Cocci 11/30/16 19:35 Sputum Gram Stain - Final 11/30/16 19:35 Sputum Sputum Culture - Preliminary No growth. 12/01/16 11:00 Stool C. difficile Antigen & Toxin A,B (M - Final Most Recent Lab Values WBC 11.9 10^3/ul (4.5-11.0) H D 12/02/16 07:54 RBC 3.35 10^6/uL (3.5-6.1) L 12/02/16 07:54 Hgb 10.3 gm/dL (12.0-16.0) L 12/02/16 07:54 Hct 31.1 % (36.0-48.0) L 12/02/16 07:54 MCV 92.8 fL (80.0-105.0) 12/02/16 07:54 MCH 30.7 pg (25.0-35.0) 12/02/16 07:54 MCHC 33.1 g/dl (31.0-37.0) 12/02/16 07:54 RDW 15.0 % (11.5-14.5) H 12/02/16 07:54 Plt Count 229 10^3/uL (120.0-450.0) 12/02/16 07:54 MPV 11.3 fl (7.0-11.0) H 12/02/16 07:54 Gran % 75.4 % (50.0-68.0) H 12/02/16 07:54 Lymph % (Auto) 18.3 % (22.0-35.0) L 12/02/16 07:54 Rich % (Auto) 6.3 % (1.0-6.0) H 12/02/16 07:54 Eos % (Auto) 0.0 % (1.5-5.0) L 12/02/16 07:54 Baso % (Auto) 0.0 % (0.0-3.0) 12/02/16 07:54 Gran # 9.00 (1.4-6.5) H 12/02/16 07:54 Lymph # 2.2 (1.2-3.4) 12/02/16 07:54 Rich # 0.8 (0.1-0.6) H 12/02/16 07:54 Eos # 0.0 (0.0-0.7) 12/02/16 07:54 Baso # 0.00 K/mm3 (0.0-2.0) 12/02/16 07:54 pO2 56 mm/Hg (30-55) H 11/30/16 17:30 VBG pH 7.39 (7.32-7.43) 11/30/16 17:30 VBG pCO2 40.0 (40-60) 11/30/16 17:30 VBG HCO3 24.2 mmol/l (21-28) 11/30/16 17:30 VBG Total CO2 25.4 mmol.L (22-28) 11/30/16 17:30 VBG O2 Sat (Calc) 93.1 % (40-65) H 11/30/16 17:30 VBG Base Excess -0.7 mmol/L (0.0-2.0) L 11/30/16 17:30 VBG Potassium 4.2 mmol/L (3.6-5.2) 11/30/16 17:30 Sodium 136.0 mmol/L (132-148) 11/30/16 17:30 Chloride 106.0 mmol/L (98-107) 11/30/16 17:30 Glucose 111 mg/dl (65-105) H 11/30/16 17:30 Lactate 1.2 mmol/L (0.7-2.1) 11/30/16 17:30 FiO2 21.0 % 11/30/16 17:30 Sodium 141 mmol/L (132-148) 12/02/16 07:54 Potassium 3.9 mmol/L (3.6-5.0) 12/02/16 07:54 Chloride 116 mmol/L (98-107) H 12/02/16 07:54 Carbon Dioxide 20 mmol/L (21-33) L 12/02/16 07:54 Anion Gap 9 (10-20) L 12/02/16 07:54 BUN 19 mg/dL (7-21) 12/02/16 07:54 Creatinine 0.8 mg/dL (0.5-1.4) 12/02/16 07:54 Est GFR ( Amer) > 60 12/02/16 07:54 Est GFR (Non-Af Amer) > 60 12/02/16 07:54 Random Glucose 92 mg/dL (70-110) 12/02/16 07:54 Hemoglobin A1c 5.9 % (4.2-6.5) 11/30/16 21:00 Calcium 9.0 mg/dL (8.4-10.5) 12/02/16 07:54 Phosphorus 2.7 mg/dL (2.5-4.5) 12/02/16 07:54 Magnesium 2.3 mg/dL (1.7-2.2) H 12/02/16 07:54 Total Bilirubin 0.3 mg/dL (0.2-1.3) 12/02/16 07:54 AST 37 U/L (15-39) 12/02/16 07:54 ALT 63 U/L (7-56) H 12/02/16 07:54 Alkaline Phosphatase 70 U/L (38-133) 12/02/16 07:54 Total Protein 5.8 g/dL (5.8-8.3) 12/02/16 07:54 Albumin 2.9 g/dL (3.0-4.8) L 12/02/16 07:54 Globulin 2.9 gm/dL 12/02/16 07:54 Albumin/Globulin Ratio 1.0 (1.1-1.8) L 12/02/16 07:54 Procalcitonin < 0.05 NG/ML (0.19-0.49) L 12/02/16 07:54 Free T4 0.56 ng/dL (0.78-2.19) L 11/30/16 21:00 TSH 3rd Generation 4.96 mIU/mL (0.46-4.68) H 11/30/16 21:00 Venous Blood Potassium 4.2 mmol/L (3.6-5.2) 11/30/16 17:30 Urine Color Yellow (YELLOW) 11/30/16 19:30 Urine Appearance Clear (CLEAR) 11/30/16 19:30 Urine pH 6.0 (4.7-8.0) 11/30/16 19:30 Ur Specific [place] 1.025 (1.005-1.035) 11/30/16 19:30 Urine Protein Negative mg/dL (<30 mg/dL) 11/30/16 19:30 Urine Glucose (UA) Negative mg/dL (NEGATIVE) 11/30/16 19:30 Urine Ketones Trace mg/dL (NEGATIVE) H 11/30/16 19:30 Urine Blood Trace-intact (NEGATIVE) H 11/30/16 19:30 Urine Nitrate Negative (NEGATIVE) 11/30/16 19:30 Urine Bilirubin Negative (NEGATIVE) 11/30/16 19:30 Urine Urobilinogen 0.2 E.U./dL (<1 E.U./dL) 11/30/16 19:30 Ur Leukocyte Esterase Negative Anne/uL (NEGATIVE) 11/30/16 19:30 Urine RBC 1 - 3 /hpf (0-2) 11/30/16 19:30 Urine WBC 0 - 2 /hpf (0-6) 11/30/16 19:30 Ur Epithelial Cells 0 - 2 /hpf (0-5) 11/30/16 19:30 Influenza Typ A,B (EIA) Negative for flu a/b (NEGATIVE) 11/30/16 18:21 Ur L.pneumophila Ag Negative (NEGATIVE) 11/30/16 21:00 - Hospital Course Hospital Course: This is a 66yo F with PMH of COPD (only taking essential oils, says it is controlled with that), Depression/Anxiety, HLD, and Hypothyroidism who presented with SOB/cough with productive sputum (initially brown, now clear) and was found to have Sepsis likely 2/2 to pneumonia. Met Sepsis criteria due to WBC of 20.1, febrile, and tachycardia. She was seen by ID and Pulm while here. As per ID, treating as a Healthcare associated pneumonia, as patient spends significant time at [facility] (including sleeping there regularly) as her son is there with Budd Chiari syndrome. While here, she had a CT suspicious for possible alveolar carcinoma; however, after discussion with the patient, she was determined to have a history of pulmonary nodule for which she regularly follows up at [facility], with a pending CT by them in 1- 2 weeks. She was instructed to follow up with them again, to allow for comparison to her prior CTs and determine if the nodule is stable or growing. She was initially treated with Vancomycin, Azactam, and Levaquin as per ID, but after review of labs/results from initial testing, ID concluded that this was more likely CAP, and switched the patient to PO Levaquin 500mg. She was given a script for a 5-day course of Levaquin and instructed to fill and take as prescribed. She expressed understanding and agreement. She was given an opportunity to ask questions, which were answered to her satisfaction. She was then discharged. Discharge Exam - Head Exam Head Exam: ATRAUMATIC, NORMAL INSPECTION, NORMOCEPHALIC - Eye Exam Eye Exam: EOMI, Normal appearance. absent: Conjunctival injection, Scleral icterus Pupil Exam: absent: Irregular, Unequal - ENT Exam ENT Exam: Mucous Membranes Dry - Neck Exam Neck exam: Full Rom, Tenderness (mild tenderness along anterior bilateral sides of neck extending into upper thoracic paravertebral muscle area, muscular tight and tender to palpation (likely spasm), alternately improved/worsened with positioning) - Respiratory Exam Respiratory Exam: Clear to PA & Lateral, NORMAL BREATHING PATTERN, UNREMARKABLE. absent: Accessory Muscle Use, Chest Wall Tenderness, Decreased Breath Sounds, Rales, Rhonchi, Wheezes - Cardiovascular Exam Cardiovascular Exam: REGULAR RHYTHM, RRR, +S1, +S2. absent: Bradycardia, Tachycardia, Irregular Rhythm, JVD, +S4 - GI/Abdominal Exam GI & Abdominal Exam: Normal Bowel Sounds, Soft, Unremarkable. absent: Diminished Bowel Sounds, Hyperactive Bowel Sounds, Hypoactive Bowel Sounds, Tenderness - Extremities Exam Extremities exam: normal inspection, pedal pulses present - Back Exam Back exam: NORMAL INSPECTION. absent: rash noted - Neurological Exam Neurological exam: Alert, Normal Gait (walking in room without overt difficulty or gait abnormality), Oriented x3 - Psychiatric Exam Psychiatric exam: Anxious, Normal Affect - Skin Skin Exam: Dry, Intact, Normal Color, Warm Discharge Plan - Discharge Medications Prescriptions: Levofloxacin [Levaquin] 500 mg PO DAILY #5 tablet Levothyroxine [Synthroid] 50 mcg PO DAILY@0630 #7 tab - Follow Up Plan Condition: FAIR Disposition: HOME/ ROUTINE Instructions: Pneumococcal Vaccine for Adults (DC), Heart Healthy Diet (DC), Cigarette Smoking and Your Health (GEN), COPD (Chronic Obstructive Pulmonary Disease) (DC), Sepsis (GEN), Pneumonia (DC) Additional Instructions: Please fill and take your prescriptions as instructed. Follow up with your PMD or at the [facility] within 72 hours of discharge. Please follow up with your Pre Owned Sales Consultant within 1 week of discharge. Referrals: [facility] [place] [facility] PCP,MOISES [Primary Care Provider] - Hay Rubio MD [Staff Provider] - <Garret Medina - Last Filed: 12/02/16 22:08> Provider - Provider Date of Admission: 11/30/16 19:08 Attending physician: Luke Rico MD Primary care physician: MOISES PRIMARY CARE PROVIDER Hospital Course - Lab Results Lab Results: Micro Results 11/30/16 19:30 Urine Urine Culture - Final Gram Positive Cocci 11/30/16 19:35 Sputum Gram Stain - Final 11/30/16 19:35 Sputum Sputum Culture - Preliminary No growth. 12/01/16 11:00 Stool C. difficile Antigen & Toxin A,B (M - Final Most Recent Lab Values WBC 11.9 10^3/ul (4.5-11.0) H D 12/02/16 07:54 RBC 3.35 10^6/uL (3.5-6.1) L 12/02/16 07:54 Hgb 10.3 gm/dL (12.0-16.0) L 12/02/16 07:54 Hct 31.1 % (36.0-48.0) L 12/02/16 07:54 MCV 92.8 fL (80.0-105.0) 12/02/16 07:54 MCH 30.7 pg (25.0-35.0) 12/02/16 07:54 MCHC 33.1 g/dl (31.0-37.0) 12/02/16 07:54 RDW 15.0 % (11.5-14.5) H 12/02/16 07:54 Plt Count 229 10^3/uL (120.0-450.0) 12/02/16 07:54 MPV 11.3 fl (7.0-11.0) H 12/02/16 07:54 Gran % 75.4 % (50.0-68.0) H 12/02/16 07:54 Lymph % (Auto) 18.3 % (22.0-35.0) L 12/02/16 07:54 Rich % (Auto) 6.3 % (1.0-6.0) H 12/02/16 07:54 Eos % (Auto) 0.0 % (1.5-5.0) L 12/02/16 07:54 Baso % (Auto) 0.0 % (0.0-3.0) 12/02/16 07:54 Gran # 9.00 (1.4-6.5) H 12/02/16 07:54 Lymph # 2.2 (1.2-3.4) 12/02/16 07:54 Rich # 0.8 (0.1-0.6) H 12/02/16 07:54 Eos # 0.0 (0.0-0.7) 12/02/16 07:54 Baso # 0.00 K/mm3 (0.0-2.0) 12/02/16 07:54 pO2 56 mm/Hg (30-55) H 11/30/16 17:30 VBG pH 7.39 (7.32-7.43) 11/30/16 17:30 VBG pCO2 40.0 (40-60) 11/30/16 17:30 VBG HCO3 24.2 mmol/l (21-28) 11/30/16 17:30 VBG Total CO2 25.4 mmol.L (22-28) 11/30/16 17:30 VBG O2 Sat (Calc) 93.1 % (40-65) H 11/30/16 17:30 VBG Base Excess -0.7 mmol/L (0.0-2.0) L 11/30/16 17:30 VBG Potassium 4.2 mmol/L (3.6-5.2) 11/30/16 17:30 Sodium 136.0 mmol/L (132-148) 11/30/16 17:30 Chloride 106.0 mmol/L (98-107) 11/30/16 17:30 Glucose 111 mg/dl (65-105) H 11/30/16 17:30 Lactate 1.2 mmol/L (0.7-2.1) 11/30/16 17:30 FiO2 21.0 % 11/30/16 17:30 Sodium 141 mmol/L (132-148) 12/02/16 07:54 Potassium 3.9 mmol/L (3.6-5.0) 12/02/16 07:54 Chloride 116 mmol/L (98-107) H 12/02/16 07:54 Carbon Dioxide 20 mmol/L (21-33) L 12/02/16 07:54 Anion Gap 9 (10-20) L 12/02/16 07:54 BUN 19 mg/dL (7-21) 12/02/16 07:54 Creatinine 0.8 mg/dL (0.5-1.4) 12/02/16 07:54 Est GFR ( Amer) > 60 12/02/16 07:54 Est GFR (Non-Af Amer) > 60 12/02/16 07:54 Random Glucose 92 mg/dL (70-110) 12/02/16 07:54 Hemoglobin A1c 5.9 % (4.2-6.5) 11/30/16 21:00 Calcium 9.0 mg/dL (8.4-10.5) 12/02/16 07:54 Phosphorus 2.7 mg/dL (2.5-4.5) 12/02/16 07:54 Magnesium 2.3 mg/dL (1.7-2.2) H 12/02/16 07:54 Total Bilirubin 0.3 mg/dL (0.2-1.3) 12/02/16 07:54 AST 37 U/L (15-39) 12/02/16 07:54 ALT 63 U/L (7-56) H 12/02/16 07:54 Alkaline Phosphatase 70 U/L (38-133) 12/02/16 07:54 Total Protein 5.8 g/dL (5.8-8.3) 12/02/16 07:54 Albumin 2.9 g/dL (3.0-4.8) L 12/02/16 07:54 Globulin 2.9 gm/dL 12/02/16 07:54 Albumin/Globulin Ratio 1.0 (1.1-1.8) L 12/02/16 07:54 Procalcitonin < 0.05 NG/ML (0.19-0.49) L 12/02/16 07:54 Free T4 0.56 ng/dL (0.78-2.19) L 11/30/16 21:00 TSH 3rd Generation 4.96 mIU/mL (0.46-4.68) H 11/30/16 21:00 Venous Blood Potassium 4.2 mmol/L (3.6-5.2) 11/30/16 17:30 Urine Color Yellow (YELLOW) 11/30/16 19:30 Urine Appearance Clear (CLEAR) 11/30/16 19:30 Urine pH 6.0 (4.7-8.0) 11/30/16 19:30 Ur Specific [place] 1.025 (1.005-1.035) 11/30/16 19:30 Urine Protein Negative mg/dL (<30 mg/dL) 11/30/16 19:30 Urine Glucose (UA) Negative mg/dL (NEGATIVE) 11/30/16 19:30 Urine Ketones Trace mg/dL (NEGATIVE) H 11/30/16 19:30 Urine Blood Trace-intact (NEGATIVE) H 11/30/16 19:30 Urine Nitrate Negative (NEGATIVE) 11/30/16 19:30 Urine Bilirubin Negative (NEGATIVE) 11/30/16 19:30 Urine Urobilinogen 0.2 E.U./dL (<1 E.U./dL) 11/30/16 19:30 Ur Leukocyte Esterase Negative Anne/uL (NEGATIVE) 11/30/16 19:30 Urine RBC 1 - 3 /hpf (0-2) 11/30/16 19:30 Urine WBC 0 - 2 /hpf (0-6) 11/30/16 19:30 Ur Epithelial Cells 0 - 2 /hpf (0-5) 11/30/16 19:30 Influenza Typ A,B (EIA) Negative for flu a/b (NEGATIVE) 11/30/16 18:21 Ur L.pneumophila Ag Negative (NEGATIVE) 11/30/16 21:00 Attending/Attestation - Attestation I have personally seen and examined this patient.: Yes I have fully participated in the care of the patient.: Yes I have reviewed all pertinent clinical information, including history, physical exam and plan: Yes Notes (Text): 12/02/16 22:07 Patient seen and examined at bedside. Labs, vitals, notes and medications noted. She feels improved todaywith occasional dry cough. Denies any new complaints and remains afebrile. Leukocytosis improved. Cultures remain negative so far. She is cleared for discharge by ID and pulmonary service on PO antibiotics. Reviewed and agree with the plan of care outlined by the resident.
--- NOTE | 2016-12-02 18:30 | PN ---
DATE: 12/02/2016 REFERRING PHYSICIAN: Dr. Rico. SUBJECTIVE: She is sitting at the side of the bed, feels much better, decreased cough, decreased simone rtness of breath. No nausea, no vomiting, no diarrhea. No leg pain or swelling. OBJECTIVE: GENERAL: In no acute distress. VITAL SIGNS: Temp is 98, heart rate is 70, respiratory rate is 20, blood pressure 123/70, pulse ox 9 3% on room air. HEENT: Moist mucous membranes. No ulcer or oral thrush noted. NECK: Supple. No JVD. LUNGS: Have prolonged respiratory phase wheezing. HEART: S1 and S2. ABDOMEN: Soft, nontender. No organomegaly. EXTREMITIES: There is no edema. NEUROLOGIC: Awake, alert, follows simple commands. MEDICATIONS: She is on heparin 5000 units subQ q.8 hours, Imodium 2 mg q.i.d. p.r.n., 500 mg d aily, Lipitor 10 mg daily, Lovaza 2 mg b.i.d., Pepcid 20 mg twice a day, Seroquel 25 mg at bedtime, I V fluid normal saline 100 mL per hour, Solu-Medrol 40 mg IV daily, Synthroid 88 mcg daily, Tylenol p. r.n. basis, Zestril 25 mg 3 times a day p.r.n., Zofran 8 mg q.8 hours p.r.n. LABORATORY DATA: Shows hemoglobin 10.3, hematocrit 31.1, WBC 11.9, platelet is 229. Chemistry shows sodium 141, potassium 3.9, chloride 116, bicarbonate 20, BUN 19, creatinine 0.8, glucose 92, calcium is 9.0, magnesium 2.3, AST 37, ALT 63, alkaline phosphatase is 70, albumin is 2.9. Urine had gram-p ositive cocci. Sputum and stool have been negative. Had a CAT scan of the chest, abdomen and pelvis done yesterday, which shows bilateral nonobstructive nephrolithiasis, chronic diverticulosis, left a drenal lesion, right lower lobe region of consolidation. IMPRESSION AND PLAN: Chronic obstructive lung disease, hypothyroidism, hyperlipidemia, adrenal lesio n, pulmonary infiltrate. Pulmonary point of view, doing okay. Will decrease Solu-Medrol to 20 mg da james. Antibiotics as per infectious diseases. Gastric prophylaxis. Deep venous thrombosis prophylax is. Fall precaution. Aspiration precaution. Thank you and will follow with you. Hay Rubio MD cc: [id number] TT: 12/02/2016 18:29:58 Confirmation # [id number] Dictation # [id number]
[2016-12-03] MEDS ORDERED: levoFLOXacin 500 MG TAB PO SCH (10:00)
== END 2016-12-02 17:09 | disposition home or self-care (01) | DRG 871 ==
LOC: ED 16:33 → ERH 19:08 → 5RNO 21:29
PROVIDERS: ADMIT Internal Medicine; ATTEND Internal Medicine
DX: A41.9 Sepsis, unspecified organism (principal); J18.9 Pneumonia, unspecified organism; J44.0 Chronic obstructive pulmonary disease with (acute) lower respiratory infection; E03.9 Hypothyroidism, unspecified; R91.1 Solitary pulmonary nodule; E78.00 Pure hypercholesterolemia, unspecified; E78.5 Hyperlipidemia, unspecified; F32.9 Major depressive disorder, single episode, unspecified; F41.9 Anxiety disorder, unspecified; F17.210 Nicotine dependence, cigarettes, uncomplicated; E27.9 Disorder of adrenal gland, unspecified; Z88.0 Allergy status to penicillin

== ENCOUNTER 2017-03-28 11:46 | Emergency (ER) | payer MEDICARE, MEDICAID ==
[2017-03-28 11:52] VITALS: BMI 24.1
[2017-03-28 11:57] VITALS: BP 103/69; PULSE 74; RESP 17; TEMP 98.1; O2SAT 99
[2017-03-28] MEDS ORDERED: Levalbuterol 1.25 MG/3 ML Inhal Soln UD IH STA (12:30)
[2017-03-28] MEDS ORDERED: guaiFENesin 200 mg/10 ml Syrup UD PO STA (12:30)
--- NOTE | 2017-03-28 12:33 | ED PDOC ---
Arrival/HPI - General Chief Complaint: Female Genitourinary Time Seen by Provider: 03/28/17 12:11 Historian: Patient - History of Present Illness Narrative History of Present Illness (Text): 03/28/17 12:20 67 year old female, whose past medical history includes COPD, anxiety, and hypothyroidism, presents to the emergency department complaining of hematuria for 2 days. Patient reports also experiencing chronic shortness of breath, cough , slight abdominal pain, and lower back "heaviness" with walking. However, she denies of any nausea, vomiting, diarrhea, dysuria, vaginal bleeding, back pain, dizziness, visual changes, or any other complaints. Also, patient mentions she no longer takes medication for anxiety and instead smokes marijuana for relief. Time/Duration: > week (2 days) Symptom Onset: Sudden Symptom Course: Unchanged Past Medical History - Provider Review Nursing Documentation Reviewed: Yes - Infectious Disease Hx of Infectious Diseases: None - Tetanus Immunization Tetanus Immunization: Unknown - Cardiac Hx Cardiac Disorders: Yes - Pulmonary Hx Respiratory Disorders: Yes Hx Chronic Obstructive Pulmonary Disease (COPD): Yes Hx Pneumonia: Yes - Neurological Hx Neurological Disorder: No - HEENT Hx HEENT Disorder: No - Renal Hx Renal Disorder: No - Endocrine/Metabolic Hx Endocrine Disorders: Yes Hx Hypothyroidism: Yes - Hematological/Oncological Hx Blood Disorders: No - Integumentary Hx Dermatological Disorder: No Hx Basal Cell Carcinoma: No - Musculoskeletal/Rheumatological Hx Musculoskeletal Disorders: No Hx Falls: No - Gastrointestinal Hx Gastrointestinal Disorders: No - Genitourinary/Gynecological Hx Genitourinary Disorders: No - Psychiatric Hx Psychophysiologic Disorder: Yes Hx Anxiety: Yes Hx Substance Use: Yes Other/Comment: Smoker - Anesthesia Hx Anesthesia: No Family/Social History - Physician Review Nursing Documentation Reviewed: Yes Family/Social History: No Known Family HX Smoking Status: Light Smoker < 10 Cigarettes Daily Hx Alcohol Use: No Hx Substance Use: Yes Substance used: marajuana Allergies/Home Meds Allergies/Adverse Reactions: Allergies aloe Allergy (Verified 03/28/17 11:51) ANGIOEDEMA Penicillins Allergy (Verified 03/28/17 11:51) ANGIOEDEMA Review of Systems - Physician Review All systems were reviewed & negative as marked: Yes - Review of Systems Eyes: absent: Vision Changes Respiratory: SOB, Cough Gastrointestinal: Abdominal Pain (slight abdominal pain). absent: Diarrhea, Nausea, Vomiting Genitourinary Female: Hematuria. absent: Dysuria, Vaginal Bleeding Musculoskeletal: Other (lower back "heaviness" as described by the patient). absent: Back Pain Neurological: absent: Dizziness Physical Exam Vital Signs Reviewed: Yes Vital Signs Temp Pulse Resp BP Pulse Ox 03/28/17 11:56 98.1 F 74 17 103/69 99 Temperature: Afebrile Blood Pressure: Normal Pulse: Regular Respiratory Rate: Normal Appearance: Positive for: Well-Appearing Pain Distress: None Mental Status: Positive for: Alert and Oriented X 3 - Systems Exam Head: Present: Atraumatic, Normocephalic Pupils: Present: PERRL Mouth: Present: Moist Mucous Membranes Pharnyx: Present: Normal. No: ERYTHEMA, EXUDATE Neck: Present: Normal Range of Motion Respiratory/Chest: Present: Good Air Exchange, Wheezes (mild wheezing) Cardiovascular: Present: Regular Rate and Rhythm, Normal S1, S2. No: Murmurs Abdomen: Present: Normal Bowel Sounds. No: Tenderness, Distention, Peritoneal Signs Back: Present: Normal Inspection Upper Extremity: Present: Normal Inspection. No: Cyanosis, Edema Lower Extremity: Present: Normal Inspection. No: Edema Neurological: Present: GCS=15, CN II-XII Intact, Speech Normal Skin: Present: Warm, Dry, Normal Color. No: Rashes Psychiatric: Present: Alert, Oriented x 3, Normal Insight, Normal Concentration Medical Decision Making ED Course and Treatment: 03/28/17 12:24 Impression: 67 year old female with hematuria. Physical exam shows good air exchange but presence of mild wheezing. Plan: -- EKG -- Chest X-ray -- Abd/Pelvis CT -- Chest CT -- Labs -- Urinalysis -- Urine Culture -- Robitussin -- Xopenex -- Blood Gas -- Reassess and disposition Prior Visits: Notes and results from previous visits were reviewed. Patient was last seen in the emergency department on 11/30/2016 for productive cough. Patient was admitted with diagnosis sepsis and COPD. Progress Notes: 03/28/2017 13:03 Chest X-ray IMPRESSION: Indeterminate nodular opacity projecting over left lung base considerations detailed above. Consider nipple markers and bilateral oblique chest x-ray views and/or CT chest without contrast to further evaluate. Dictator: Loretta Encinas MD 03/28/2017 15:06 Abd/Pelvis CT IMPRESSION: There is a 4 x 10 mm stone in the right renal pelvis. There is a 6 mm stone in the periphery of the left kidney. Dictator: Janes Jaramillo MD 03/28/2017 15:[address] IMPRESSION: Unremarkable non-contrast enhanced CT of the chest. Dictator: Janes Jaramillo MD 03/28/17 15:26 Patient with noted history. CXR as noted but follow up CT done negative. Blood work is unremarkable. Urine with blood - will place on antibiotic trial for urine and have her f/u urology for the large renal stone(s). Patient is comfortable appearing and asking to go home. - Lab Interpretations Lab Results: 03/28/17 13:00 03/28/17 13:00 Lab Results 03/28/17 13:00: Sodium 144, Chloride 109 H, Potassium 4.1, Carbon Dioxide 28, Anion Gap 11, BUN 15, Creatinine 0.8, Est GFR ( Amer) > 60, Est GFR (Non- Af Amer) > 60, Random Glucose 89, Calcium 9.4, Magnesium 2.4 H, Total Bilirubin 0.2, AST 25, ALT 34, Alkaline Phosphatase 64, Lactate Dehydrogenase 442, Total Creatine Kinase 94, Troponin I < 0.01, NT-Pro-B Natriuret Pep 67.1, Total Protein 7.0, Albumin 4.1, Globulin 2.9, Albumin/Globulin Ratio 1.4, Lipase 234 03/28/17 13:00: pO2 28 L, VBG pH 7.31 L, VBG pCO2 60.0, VBG HCO3 30.2 H, VBG Total CO2 32.0 H, VBG O2 Sat (Calc) 63.2, VBG Base Excess 2.4 H, VBG Potassium 4.0, Sodium 142.0, Chloride 108.0 H, Glucose 89, Lactate 0.7, FiO2 21.0, Venous Blood Potassium 4.0 03/28/17 13:00: PT 10.0, INR 0.93, APTT 27.3 03/28/17 13:00: WBC 6.8 D, RBC 4.23, Hgb 13.2, Hct 39.4, MCV 93.1, MCH 31.2, MCHC 33.5, RDW 15.1 H, Plt Count 251, MPV 10.5, Gran % 48.2 L, Lymph % (Auto) 43.[address] H, [place] % (Auto) 7.2 H, Eos % (Auto) 0.9 L, Baso % (Auto) 0.6, Gran # 3.26 , Lymph # 2.9, [place] # 0.5, Eos # 0.1, Baso # 0.04 03/28/17 12:37: Urine Color Light yellow, Urine Appearance Slight-cloudy, Urine pH 6.0, Ur Specific [place] 1.025, Urine Protein 30 H, Urine Glucose (UA) Negative, Urine Ketones Negative, Urine Blood Large H, Urine Nitrate Negative, Urine Bilirubin Negative, Urine Urobilinogen 0.2, Ur Leukocyte Esterase Negative , Urine RBC 25 - 30, Urine WBC 1 - 3, Ur Epithelial Cells 6 - 8, Amorphous Sediment Few, Urine Bacteria Many I have reviewed the lab results: Yes - RAD Interpretation Radiology Orders: 03/28/17 12:27 CHEST TWO VIEWS (PA/LAT) [RAD] Stat 03/28/17 13:25 ABD & PELVIS W/O PO OR IV CONT [CT] Stat 03/28/17 13:26 CHEST W/O & HIGH RES CHEST [CT] Stat - Medication Orders Current Medication Orders: Discontinued Medications Guaifenesin (Robitussin) 400 mg PO ONCE STA Stop: 03/28/17 12:31 Last Admin: 03/28/17 13:14 Dose: Not Given Non-Admin Reason: Patient Refused Levalbuterol HCl (Xopenex) 1.25 mg IH STAT STA Stop: 03/28/17 12:31 Last Admin: 03/28/17 13:14 Dose: 1.25 mg - Scribe Statement The provider has reviewed the documentation as recorded by the Felicia Freedman Provider Scribe Attestation: All medical record entries made by the Felicia were at my direction and personally dictated by me. I have reviewed the chart and agree that the record accurately reflects my personal performance of the history, physical exam, medical decision making, and the department course for this patient. I have also personally directed, reviewed, and agree with the discharge instructions and disposition. Disposition/Present on Arrival - Present on Arrival Any Indicators Present on Arrival: No History of DVT/PE: No History of Uncontrolled Diabetes: No Urinary Catheter: No History of Decub. Ulcer: No History Surgical Site Infection Following: None - Disposition Have Diagnosis and Disposition been Completed?: Yes Diagnosis: Renal stones, Hematuria Disposition: HOME/ ROUTINE Disposition Time: 15:30 Patient Plan: Discharge Condition: GOOD Discharge Instructions (ExitCare): Kidney Stones (ED), How to Strain Your Urine (ED) Additional Instructions: Drink plenty of fluids. Take the antibiotics as prescribed. You must follow up with urology (Dr. Luevano) and primary care. Return to the emergency department if any new concerning symptoms. Prescriptions: Nitrofurantoin Macrocrystals [Macrobid] 100 mg PO BID #14 cap Referrals: Jeb Poole MD [Staff Provider] - Follow up with primary Bryn Luevano MD [Staff Provider] - Follow up with primary Forms: Retention Education (Icelandic)
[2017-03-28 12:49] LABS: URINE BILIRUBIN NEGATIVE (NEGATIVE); URINE BLOOD LARGE (NEGATIVE); URINE GLUCOSE (UA) NEGATIVE (NEGATIVE); URINE KETONE NEGATIVE (NEGATIVE); URINE LEUKOCYTE ESTERASE NEGATIVE Leu/uL (NEGATIVE); URINE PROTEIN 30 mg/dL (<30 mg/dL); URINE UROBILINOGEN 0.2 E.U./dL (<1 E.U./dL)
[2017-03-28 12:50] LABS: URINE APPEARANCE SLIGHT-CLOUDY (CLEAR); URINE COLOR LIGHT YELLOW (YELLOW)
--- NOTE | 2017-03-28 13:05 | RAD ---
HISTORY: back heaviness with ambulation COMPARISON: 11/30/2016 TECHNIQUE: Chest PA and lateral FINDINGS: LUNGS: A low-density vague nodular opacity projects over the left lung base on the current study - asymmetrically prominent nipple shadow versus interval pulmonary nodule nodular infiltrate are considerations. PLEURA: No significant pleural effusion identified. No pneumothorax apparent. CARDIOVASCULAR: Normal. OSSEOUS STRUCTURES: No significant abnormalities. VISUALIZED UPPER ABDOMEN: Normal. OTHER FINDINGS: None. IMPRESSION: Indeterminate nodular opacity projecting over left lung base considerations detailed above Consider nipple markers and bilateral oblique chest x-ray views and/or CT chest without contrast to further evaluate
[2017-03-28 13:06] LABS: URINE RBC 25 - 30 /hpf (0-2)
[2017-03-28 13:08] LABS: URINE AMORPHOUS SEDIMENT FEW; URINE BACTERIA MANY (NEG)
[2017-03-28 13:21] LABS: VENOUS BLOOD GAS BASE EXCESS 2.4 mmol/L (0.0-2.0); VENOUS BLOOD PH 7.31 (7.32-7.43)
[2017-03-28 13:24] LABS: BASO # 0.04 K/mm3 (0.0-2.0); BASO % 0.6 % (0.0-3.0); EOS # 0.1 (0.0-0.7); EOS % 0.9 % (1.5-5.0); GRAN # 3.26 (1.4-6.5); GRAN % 48.2 % (50.0-68.0); HEMATOCRIT 39.4 % (36.0-48.0); LYMPH # 2.9 (1.2-3.4); LYMPH % 43.1 % (22.0-35.0); MEAN CELL VOLUME 93.1 fl (80.0-105.0); MEAN CORPUSCULAR HEMOGLOBIN 31.2 pg (25.0-35.0); MEAN CORPUSCULAR HGB CONC 33.5 g/dl (31.0-37.0); MEAN PLATELET VOLUME 10.5 fl (7.0-11.0); MONO # 0.5 (0.1-0.6); MONO % 7.2 % (1.0-6.0); RED CELL DISTRIBUTION WIDTH 15.1 % (11.5-14.5); WHITE BLOOD COUNT 6.8 10^3/ul (4.5-11.0)
[2017-03-28 13:31] LABS: INR 0.93 (0.93-1.08); PARTIAL THROMBOPLASTIN TIME 27.3 Seconds (23.7-30.8)
[2017-03-28 13:32] LABS: ALB/GLOB RATIO 1.4 (1.1-1.8); ALKALINE PHOSPHATASE 64 U/L (38-126); ALT/SGPT 34 U/L (7-56); AST/SGOT 25 U/L (14-36); BILIRUBIN,TOTAL 0.2 mg/dL (0.2-1.3); BLOOD UREA NITROGEN 15 mg/dL (7-21); CALCIUM 9.4 mg/dL (8.4-10.5); CARBON DIOXIDE 28 mmol/L (21-33); CHLORIDE 109 mmol/L (98-107); GFR AFRICAN-AMERICAN > 60; GLUCOSE,RANDOM 89 mg/dL (70-110); LIPASE 234 U/L (23-300); MAGNESIUM 2.4 mg/dL (1.7-2.2); POTASSIUM 4.1 mmol/L (3.6-5.0); SODIUM 144 mmol/L (132-148)
[2017-03-28 13:48] LABS: TROPONIN I < 0.01 ng/mL
--- NOTE | 2017-03-28 15:07 | CT ---
PROCEDURE: CT Abdomen and Pelvis without intravenous contrast HISTORY: hematuria, back pain; h/o renal stones COMPARISON: 12/01/2016 CT TECHNIQUE: Without contrast.. Contrast Dose: Radiation dose: Total exam DLP = 391 mGy-cm. This CT exam was performed using one or more of the following dose reduction techniques: Automated exposure control, adjustment of the mA and/or kV according to patient size, and/or use of iterative reconstruction technique. FINDINGS: LOWER THORAX: Unremarkable. LIVER: Unremarkable. No gross lesion or ductal dilatation. GALLBLADDER AND BILE DUCTS: Unremarkable. PANCREAS: Unremarkable. No gross lesion or ductal dilatation. SPLEEN: Unremarkable. ADRENALS: Unremarkable. No mass. KIDNEYS AND URETERS: There is a 4 x 10 mm stone in the right renal pelvis. There is a 6 mm stone in the periphery of the left kidney. These are unchanged in appearance VASCULATURE: Unremarkable. No aortic aneurysm. BOWEL: Unremarkable. No obstruction. No gross mural thickening. There is moderate diverticulosis of the sigmoid colon. APPENDIX: Unremarkable. Normal appendix. PERITONEUM: Unremarkable. No free fluid. No free air. LYMPH NODES: Unremarkable. No enlarged lymph nodes. BLADDER: Unremarkable. REPRODUCTIVE: Unremarkable. BONES: No acute fracture. OTHER FINDINGS: None. IMPRESSION: There is a 4 x 10 mm stone in the right renal pelvis. There is a 6 mm stone in the periphery of the left kidney.
--- NOTE | 2017-03-28 15:18 | CT ---
PROCEDURE: CT Chest without contrast HISTORY: nodular opacity L leg on CXR COMPARISON: Chest x-ray same day TECHNIQUE: Contiguous axial images were obtained through the chest without intravenous contrast enhancement. Sagittal and coronal reconstructions were performed. Radiation dose (DLP): mGy-cm. This CT exam was performed using one or more of the following dose reduction techniques: Automated exposure control, adjustment of the mA and/or kV according to patient size, and/or use of iterative reconstruction technique. FINDINGS: LUNGS: Clear lungs. Visualized airway clear. There is no abnormality corresponding to the reported density at the left lung base on chest x-ray. MEDIASTINUM: Unremarkable thoracic aorta. No aneurysm. Normal sized heart. Main pulmonary artery unremarkable. No vascular congestion. No lymphadenopathy. PLEURA: No pleural fluid. No pneumothorax. BONES: No fracture. No destructive lesion. UPPER ABDOMEN: Grossly unremarkable. OTHER FINDINGS: None. IMPRESSION: Unremarkable non-contrast enhanced CT of the chest.
--- NOTE | 2017-03-29 01:50 | CARD ---
APPROVED REPORT EKG Measurement Heart [id number] <Conclusion> Normal sinus rhythm Normal ECG
== END 2017-03-28 15:41 | disposition home or self-care (01) ==
LOC: ED 11:46
DX: N20.0 Calculus of kidney (principal); R31.9 Hematuria, unspecified; F17.210 Nicotine dependence, cigarettes, uncomplicated; E03.9 Hypothyroidism, unspecified; J44.9 Chronic obstructive pulmonary disease, unspecified

== ENCOUNTER 2017-11-16 18:39 | Emergency (ER) | payer MEDICARE, MEDICAID ==
[2017-11-16 18:46] VITALS: RESP 18; TEMP 98.4
[2017-11-16 18:54] VITALS: BMI 25.4
[2017-11-16] MEDS ORDERED: Sodium Chloride 0.9% 1,000 ML IV STA (19:16)
[2017-11-16 19:51] LABS: BASO # 0.05 K/mm3 (0.0-2.0); BASO % 0.3 % (0.0-3.0); EOS # 0.1 (0.0-0.7); EOS % 0.4 % (1.5-5.0); GRAN # 12.56 (1.4-6.5); GRAN % 74.5 % (50.0-68.0); HEMOGLOBIN 13.2 g/dL (12.0-16.0); LYMPH # 2.8 (1.2-3.4); LYMPH % 16.9 % (22.0-35.0); MEAN CELL VOLUME 90.8 fl (80.0-105.0); MEAN CORPUSCULAR HGB CONC 34.1 g/dl (31.0-37.0); MEAN PLATELET VOLUME 10.3 fl (7.0-11.0); MONO # 1.3 (0.1-0.6); MONO % 7.9 % (1.0-6.0); RBC 4.26 10^6/uL (3.5-6.1); RED CELL DISTRIBUTION WIDTH 14.4 % (11.5-14.5); WHITE BLOOD COUNT 16.9 10^3/ul (4.5-11.0)
[2017-11-16 20:03] LABS: ALB/GLOB RATIO 1.3 (1.1-1.8); ALBUMIN 4.3 g/dL (3.0-4.8); ALT/SGPT 31 U/L (7-56); AST/SGOT 23 U/L (14-36); BLOOD UREA NITROGEN 16 mg/dL (7-21); CALCIUM 9.4 mg/dL (8.4-10.5); GFR AFRICAN-AMERICAN > 60; GFR NON-AFRICAN AMERICAN > 60; LIPASE 286 U/L (23-300)
[2017-11-16 20:10] LABS: PH,URINE 6.5 (4.7-8.0); URINE APPEARANCE CLEAR (CLEAR); URINE BILIRUBIN NEGATIVE (NEGATIVE); URINE BLOOD TRACE-LYSED (NEGATIVE); URINE COLOR LIGHT YELLOW (YELLOW); URINE GLUCOSE (UA) NEGATIVE (NEGATIVE); URINE LEUKOCYTE ESTERASE SMALL Leu/uL (NEGATIVE); URINE PROTEIN NEGATIVE mg/dL (<30 mg/dL); URINE UROBILINOGEN 0.2 E.U./dL (<1 E.U./dL)
[2017-11-16 20:23] LABS: URINE EPITHELIAL CELLS 0 - 2 /hpf (0-5); URINE RBC NEGATIVE /hpf (0-2); URINE WBC 0 - 2 /hpf (0-6)
--- NOTE | 2017-11-16 21:17 | CT ---
EXAM: CT Abdomen and Pelvis Without Intravenous Contrast EXAM DATE/TIME: 11/16/2017 7:16 PM CLINICAL HISTORY: 67 years old, female; Pain; Abdominal pain; Localized; Left; Additional info: Left tenderness - h/o kidney stones TECHNIQUE: Axial computed tomography images of the abdomen and pelvis without intravenous contrast. All CT scans at this facility use one or more dose reduction techniques, viz.: automated exposure control; ma/kV adjustment per patient size (including targeted exams where dose is matched to indication; i.e. head); or iterative reconstruction technique. Coronal and sagittal reformatted images were created and reviewed. COMPARISON: CT - ABD PELVIS W/O PO OR IV CONT 2017-03-28 14:49 FINDINGS: Lung bases: Heart size is normal. There is minimal atelectasis and scarring at the lung bases ABDOMEN: Liver: There is a tiny calcification in the liver. Liver is otherwise unremarkable. Gallbladder and bile ducts: Gallbladder is distended with small calcified stones.Common duct is unremarkable. Pancreas: unremarkable Spleen: unremarkable Adrenals: There is mild adrenal thickening Kidneys and ureters: There is a nonobstructing left renal stone. There are no renal stones. There is no pelvocaliectasis or ureterectasis. Stomach and bowel: Stomach is partially distended with an air-fluid level. Rotation is normal. There is duodenal and proximal jejunal wall and fold thickening. Small bowel is mildly distended with fluid and air. There are scattered air-fluid levels. Ileocecal region is unremarkable. There is scattered diverticulosis throughout the colon. There is sigmoid diverticulitis. There is pericolonic inflammation and edema. There is no abscess. PELVIS: Appendix: See stomach and bowel Bladder: unremarkable Reproductive: Uterus and adnexal structures are unremarkable. ABDOMEN and PELVIS: Intraperitoneal space: There is fluid in the pelvis. There is inflammation and edema in the pelvis. There is no free air. Bones/joints: There are degenerative changes in the osseus structures. Soft tissues: There is a small fat containing umbilical hernia. Vasculature: There are vascular calcifications. Lymph nodes: There is no pathologic adenopathy. IMPRESSION: Sigmoid diverticulitis; nonobstructing left renal stone, no ureteral stones or hydronephrosis; ileus with possible enteritis Additional nonemergent findings as described above.
--- NOTE | 2017-11-16 21:17 | ED PDOC ---
Arrival/HPI - General Chief Complaint: Abdominal Pain Time Seen by Provider: 11/16/17 18:47 Historian: Patient - History of Present Illness Narrative History of Present Illness (Text): 11/16/1818:03 67 year old female, whose past medical history includes left-sided kidney stones , COPD, depression/anxiety, Hypercholesterolemia, and hypothyroidism, presents to the emergency department complaining of left lower back pain for the past 3- 4 days. She states she has been eating well. Patient also reports mild constipation, but denies any fever, chills, chest pain, shortness of breath, abdominal pain, nausea, vomiting, diarrhea, urinary symptoms, neck pain, headache, dizziness, or any other complaints. Time/Duration: Other (3-4 days) Symptom Onset: Gradual Symptom Course: Unchanged Activities at Onset: Light Context: Home Past Medical History - Provider Review Nursing Documentation Reviewed: Yes - Infectious Disease Hx of Infectious Diseases: None - Tetanus Immunization Tetanus Immunization: Unknown - Reproductive Menopause: Yes - Cardiac Hx Cardiac Disorders: No - Pulmonary Hx Respiratory Disorders: Yes Hx Chronic Obstructive Pulmonary Disease (COPD): Yes Hx Pneumonia: Yes - Neurological Hx Neurological Disorder: No - HEENT Hx HEENT Disorder: No - Renal Hx Renal Disorder: No - Endocrine/Metabolic Hx Endocrine Disorders: Yes Hx Hypothyroidism: Yes - Hematological/Oncological Hx Blood Disorders: No - Integumentary Hx Dermatological Disorder: No - Musculoskeletal/Rheumatological Hx Musculoskeletal Disorders: No - Gastrointestinal Hx Gastrointestinal Disorders: No - Genitourinary/Gynecological Hx Genitourinary Disorders: No - Psychiatric Hx Psychophysiologic Disorder: No Hx Substance Use: Yes (MARIJUANA) - Anesthesia Hx Anesthesia Reactions: Yes (SENSITIVE TO IT PER PT) Hx Malignant Hyperthermia: No - Suicidal Assessment Feels Threatened In Home Enviroment: No Family/Social History - Physician Review Nursing Documentation Reviewed: Yes Family/Social History: No Known Family HX Smoking Status: Light Smoker < 10 Cigarettes Daily Hx Alcohol Use: No Hx Substance Use: Yes (MARIJUANA) Substance used: marajuana Allergies/Home Meds Allergies/Adverse Reactions: Allergies aloe Allergy (Verified 11/16/17 18:47) ANGIOEDEMA aspirin Allergy (Verified 11/16/17 18:47) PALPITATIONS caffeine Allergy (Verified 11/16/17 18:47) PALPITATIONS NSAIDS (Non-Steroidal Anti-Inflamma Allergy (Verified 11/16/17 18:47) PALPITATIONS Penicillins Allergy (Verified 11/16/17 18:47) ANGIOEDEMA Home Medications: Home Meds Medication Instructions Recorded Confirmed Levothyroxine [Synthroid] 50 mcg PO DAILY 04/20/17 11/16/17 Review of Systems - Physician Review All systems were reviewed & negative as marked: Yes - Review of Systems Constitutional: absent: Fevers, Other (Chills) Respiratory: absent: SOB Cardiovascular: absent: Chest Pain Gastrointestinal: Constipation. absent: Abdominal Pain, Diarrhea, Nausea, Vomiting Genitourinary Female: absent: Dysuria, Frequency, Hematuria Musculoskeletal: Back Pain. absent: Neck Pain Neurological: absent: Headache, Dizziness Physical Exam Vital Signs Reviewed: Yes Vital Signs Temp Pulse Resp BP Pulse Ox 11/16/17 21:40 78 112/64 96 11/16/17 20:26 79 18 116/69 98 11/16/17 18:46 98.4 F 80 18 118/72 98 Temperature: Afebrile Blood Pressure: Normal Pulse: Regular Respiratory Rate: Normal Appearance: Positive for: Well-Appearing, Non-Toxic, Comfortable Pain Distress: None Mental Status: Positive for: Alert and Oriented X 3 - Systems Exam Head: Present: Atraumatic, Normocephalic Pupils: Present: PERRL Extroacular Muscles: Present: EOMI Conjunctiva: Present: Normal Mouth: Present: Moist Mucous Membranes Neck: Present: Normal Range of Motion Respiratory/Chest: Present: Clear to Auscultation, Good Air Exchange. No: Respiratory Distress, Accessory Muscle Use Cardiovascular: Present: Regular Rate and Rhythm, Normal S1, S2. No: Murmurs Abdomen: No: Tenderness, Distention, Peritoneal Signs Back: Present: CVA Tenderness (Mild left lower CVA tenderness) Upper Extremity: Present: Normal Inspection. No: Cyanosis, Edema Lower Extremity: Present: Normal Inspection. No: Edema Neurological: Present: GCS=15, CN II-XII Intact, Speech Normal Skin: Present: Warm, Dry, Normal Color. No: Rashes Psychiatric: Present: Alert, Oriented x 3, Normal Insight, Normal Concentration Medical Decision Making ED Course and Treatment: 11/16/17 19:05 Impression: 67 year old female presents complaining of left lower back pain associated with mild constipation for the past 2-3 days. Plan: -- CT Abd & Pelvis w/o contrast -- Labs -- IV Fluids, Tylenol, Zofran Inj -- Urine Culture -- Urinalysis w/ Micro -- Reassess and disposition Prior Visits: Notes and results from previous visits were reviewed. On 03/28/17 patient came in complaining of hematuria associated with shortness of breath, cough and slight abdominal pain for 2 days. Patient was discharged. Progress Notes: EXAM:CT Abdomen and Pelvis Without Intravenous Contrast Dictated and Authenticated by: Lucy Garcia MD 11/16/2017 9:17 PM IMPRESSION: Sigmoid diverticulitis; nonobstructing left renal stone, no ureteral stones or hydronephrosis; ileus with possible enteritis Additional nonemergent findings as described above. 11/16/17 21:48 CT showed Diverticulitis. Patient was offered admission, but wishes to try outpatient antibiotics. Patient was given prescriptions and follow up information. Patient feels better and is in no acute distress. I have discussed the results and plan with the patient, who expresses understanding. Patient given the opportunity to ask question, all questions were answered and there is agreement with the plan to discharge the patient home with prescriptions and follow up information. Patient is stable for discharge. Patient was instructed to follow up with physician/clinic in 1-2 days or return if symptoms persist/worsen or new concerning symptoms arise. - Lab Interpretations Lab Results: 11/16/17 19:30 11/16/17 19:30 Lab Results 11/16/17 19:58: Urine Color Light yellow, Urine Appearance Clear, Urine pH 6.5, Ur Specific [place] 1.015, Urine Protein Negative, Urine Glucose (UA) Negative, Urine Ketones Negative, Urine Blood Trace-lysed H, Urine Nitrate Negative, Urine Bilirubin Negative, Urine Urobilinogen 0.2, Ur Leukocyte Esterase Small H , Urine RBC Negative, Urine WBC 0 - 2, Ur Epithelial Cells 0 - 2 11/16/17 19:30: Sodium 142, Potassium 4.1, Chloride 110 H, Carbon Dioxide 22, Anion Gap 14, BUN 16, Creatinine 0.8, Est GFR ( Amer) > 60, Est GFR (Non- Af Amer) > 60, Random Glucose 94, Calcium 9.4, Magnesium 2.1, Total Bilirubin 0.3, AST 23, ALT 31, Alkaline Phosphatase 77, Total Protein 7.6, Albumin 4.3, Globulin 3.3, Albumin/Globulin Ratio 1.3, Lipase 286 11/16/17 19:30: WBC 16.9 H D, RBC 4.26, Hgb 13.2, Hct 38.7, MCV 90.8, MCH 31.0, MCHC 34.1, RDW 14.4, Plt Count 307, MPV 10.3, Gran % 74.5 H, Lymph % (Auto) 16.9 L, [place] % (Auto) 7.9 H, Eos % (Auto) 0.4 L, Baso % (Auto) 0.3, Gran # 12.56 H, Lymph # (Auto) 2.8, [place] # (Auto) 1.3 H, Eos # (Auto) 0.1, Baso # (Auto ) 0.05 I have reviewed the lab results: Yes - RAD Interpretation Radiology Orders: 11/16/17 19:16 ABD & PELVIS W/O PO OR IV CONT [CT] Stat - Medication Orders Current Medication Orders: Discontinued Medications Acetaminophen (Tylenol 325mg Tab) 975 mg PO STAT STA Stop: 11/16/17 19:17 Last Admin: 11/16/17 19:42 Dose: 975 mg Ciprofloxacin (Cipro) 500 mg PO STAT STA PRN Reason: Protocol Stop: 11/16/17 21:36 Last Admin: 11/16/17 21:47 Dose: 500 mg Sodium Chloride (Sodium Chloride 0.9%) 1,000 mls @ 100 mls/hr IV .Q10H STA Stop: 11/17/17 05:15 Last Admin: 11/16/17 19:40 Dose: 100 mls/hr eMAR Start Stop Document 11/16/17 19:40 SF (Rec: 11/16/17 19:40 [id number] Intravenous Solution Start Date 11/16/17 Start Time 19:40 End Date 11/16/17 Metronidazole (Flagyl) 500 mg PO STAT STA PRN Reason: Protocol Stop: 11/16/17 21:36 Last Admin: 11/16/17 21:47 Dose: 500 mg Ondansetron HCl (Zofran Inj) 4 mg IVP STAT STA Stop: 11/16/17 19:17 Last Admin: 11/16/17 19:41 Dose: 4 mg IVP Administration Document 11/16/17 19:41 SF (Rec: 11/16/17 19:41 [id number] Charges for Administration # of IVP Administrations 1 - Scribe Statement The provider has reviewed the documentation as recorded by the Felicia Shrestha Provider Salmaibe Attestation: All medical record entries made by the Scribe were at my direction and personally dictated by me. I have reviewed the chart and agree that the record accurately reflects my personal performance of the history, physical exam, medical decision making, and the department course for this patient. I have also personally directed, reviewed, and agree with the discharge instructions and disposition. Disposition/Present on Arrival - Present on Arrival Any Indicators Present on Arrival: No History of DVT/PE: No History of Uncontrolled Diabetes: No Urinary Catheter: No History of Decub. Ulcer: No History Surgical Site Infection Following: None - Disposition Have Diagnosis and Disposition been Completed?: Yes Diagnosis: Diverticulitis Disposition: HOME/ ROUTINE Disposition Time: 21:20 Condition: IMPROVED Discharge Instructions (ExitCare): Diverticulitis (DC) Additional Instructions: Thank you for letting us take care of you today. The emergency medical care you received today was directed at your acute symptoms. If you were prescribed any medication, please fill it and take as directed. It may take several days for your symptoms to resolve. Return to the Emergency Department if your symptoms worsen, do not improve, or if you have any other problems. Please contact your doctor or call one of the physicians/clinics you have been referred to that are listed on the Patient Visit Information form that is included in your discharge packet. Bring any paperwork you were given at discharge with you along with any medications you are taking to your follow up visit. Our treatment cannot replace ongoing medical care by a primary care provider (PCP) outside of the emergency department. Thank you for allowing the [facility] team to be part of your care today. Follow up with the doctor provided in 3-4 days for re-evaluation and further management. Prescriptions: Ciprofloxacin [Cipro] 500 mg PO BID #20 tab Docusate [Colace] 100 mg PO Q8 PRN #15 cap PRN Reason: Constipation Metronidazole [Flagyl] 500 mg PO Q8 #30 tablet Ondansetron ODT [Zofran ODT] 8 mg PO Q8 PRN #15 odt PRN Reason: Nausea/Vomiting Referrals: Dane Sparrow MD [Staff Provider] - Follow up with primary Forms: Ring (Estonian)
[2017-11-16 21:51] VITALS: BP 112/64; PULSE 78; O2SAT 96
== END 2017-11-16 21:50 | disposition home or self-care (01) ==
LOC: ED 18:39
DX: K57.32 Diverticulitis of large intestine without perforation or abscess without bleeding (principal); E78.00 Pure hypercholesterolemia, unspecified; E03.9 Hypothyroidism, unspecified; F17.210 Nicotine dependence, cigarettes, uncomplicated
CPT/HCPCS: 74176; 80053; 81001; 83690; 83735; 85025; 87086; 96374; 99283; J2405; J7040